=== PATIENT | female | born 1945 | race Caucasian/White ===

== ENCOUNTER 2020-01-04 00:37 | Outpatient (CLI) | payer MEDICARE, SELFPAY ==
[2020-01-04 17:53] LABS: SARS-CoV-2 RNA PCR Negative
== END 2020-01-04 00:38 | disposition home or self-care (01) ==
LOC: ANHCOVIDDT 00:37
PROVIDERS: PCP Family Medicine; Visit Provider Internal Medicine Gastroenterology
DX: Z20.828 Contact with and (suspected) exposure to other viral communicable diseases (principal); Z01.812 Encounter for preprocedural laboratory examination
CPT/HCPCS: 87635; C9803; U0003

== ENCOUNTER 2020-01-07 02:27 | Day surgery (SDC) | payer MEDICARE, SELFPAY ==
[2020-01-01 12:20] VITALS: BMI 36.1
--- NOTE | 2020-01-07 07:05 | P.PNAN_ITS ---
Anes - Initial Pre Proc Eval Procedure: Operation Date: 01/07/20 08:00 Proposed Procedures p Esophagogastroduodenoscopy - Dev Velez MD Date/Time: 01/07/20 07:05 Surgeon: Dev Velez MD Pre Op Diagnosis: iron deficiency anemia Patient Data Age: 74 Gender: F Height: 5 ft 4 in Weight: 95.5 kg Allergies Allergy/AdvReac Type Severity Reaction Status Date / Time lisinopril Allergy troat and Verified 01/07/20 07:00 tounge swelling Home Medications Medication Instructions Recorded Confirmed Type allopurinol 100 mg tablet 100 mg PO DAILY 12/03/19 01/01/20 History cholecalciferol (vitamin D3) 1,250 1,250 mcg PO MONTHLY 12/03/19 01/01/20 Histo ry mcg (50,000 unit) capsule clotrimazole 1 % topical cream 1 applic TOPICAL Q12H 12/03/19 12/06/19 History ferrous sulfate 325 mg (65 mg 325 mg PO DAILY 12/03/19 01/01/20 History iron) tablet furosemide 40 mg tablet 40 mg PO QAM 12/03/19 01/01/20 History glipizide 5 mg tablet 5 mg PO DAILY 12/03/19 01/01/20 History glucosamine HCl 750 mg tablet 750 mg PO BID 12/03/19 01/01/20 History levothyroxine 75 mcg capsule 75 mcg PO DAILY 12/03/19 01/01/20 History metformin 500 mg tablet 500 mg PO DAILY 12/03/19 01/01/20 History metoprolol succinate 25 mg 25 mg PO DAILY 12/03/19 01/01/20 History tablet,extended release 24 hr multivitamin 1 tablet PO DAILY 12/03/19 01/01/20 History pantoprazole 40 mg tablet,delayed 40 mg PO QAM 12/03/19 01/01/20 History release pravastatin 40 mg tablet 40 mg PO DAILY 12/03/19 01/01/20 History Patient hx anesthesia problems: none Family hx anesthesia problems: none PMFSH Past Medical History Medical History Anemia Asthma CKD (chronic kidney disease) Diabetes Gastroesophageal mucosal tear GI bleed x3 Mar 05, Jun 05, December 04 Gout History of blood clots History of blood transfusion 9 units HTN (hypertension) Melena Renal failure Thyroid disease Surgical History Surgical History H/O gastric bypass H/O: hysterectomy History of esophagogastroduodenoscopy (EGD) History of repair of hiatal hernia Family History Family History Father Heart attack Mother Diabetes mellitus Social History Social History Smoking status: Never smoker Alcohol intake: current Substance use: never Additional occupation/education comments: disability Gender identity (if verbalized by the patient): Female Anes - Eval Final PreProcedure Day of Procedure 01/07/20 07:05 Patient weight: obese Heart: regular rate and rhythm Lungs: clear to auscultation Airway: Mallampati scale class II Neurological: alert and oriented Last oral intake: >/= 8 hours ASA classification: II Emergent: no Anesthetic plan: proceed Anesthesia type and monitoring: general GIVS and standard monitoring Informed Consent: The patient's anesthetic plan and its attendant risks and benefits were discussed with the patient/family/POA. Questions were solicited and answers provided to the satisfaction of the patient/family/POA.
[2020-01-07 07:24] LABS: Glucose Point of Care 190 (65-105)
[2020-01-07 07:26] VITALS: BP 150/89; PULSE 86; RESP 20; TEMP 36.8; O2SAT 96
--- NOTE | 2020-01-07 07:51 | WPDGICN ---
Assessment and Plan Assessment and plan (1) SLIME (iron deficiency anemia): Code(s): D50.9 - Iron deficiency anemia, unspecified Status: Acute Assessment and Plan: Patient has had significant GI bleeding recently. Has required iron infusions. Follow-up EGD is advised at this time. Elective colonoscopy at a later date most recent colonoscopy was 2018. Continue monitor hemoglobin to ensure response to recent iron infusions. CBC should be performed at a regular basis for the next interval. (2) History of gastric bypass: Code(s): Z98.84 - Bariatric surgery status Status: Acute Assessment and Plan: Patient has a history of gastric bypass which may contribute to her iron deficiency. She is reported to have surgical gabino in the stomach which will be evaluated by EGD to determine whether the should be monitored or additional therapy warranted. (3) Upper GI bleed: Code(s): K92.2 - Gastrointestinal hemorrhage, unspecified Status: Acute (4) History of colon polyps: Code(s): Z86.010 - Personal history of colonic polyps Status: Acute Assessment and Plan: Patient has a history of colon polyps most recent colonoscopy 2018. Elective colonoscopy is advised particularly because of for ongoing iron deficiency. This should be done at least by 2020. GI Consult Note Consult date/time: 01/07/20 07:51 HPI: Lynn Wylie is a 74 year old female Seen in evaluation at the request of Abhilash Chu. patient has a history of recurrent GI bleeding. This initially began in February of 2019. She reports having 3-4 endoscopies elsewhere. At that time retained clips were identified in the stomach. Presumably from prior surgery. Patient has a distant history of gastric bypass. In her 40s. She states she has done well over recent several months. In the recent past has had for at least 5 iron infusions. There has been discussion over possible surgical resection of these retained gastric gabino from previous bypass. Patient also gives diff than state history of colon polyps identified by colonoscopy in 2018. Her family history is noncontributory. Review of Systems Review of Systems: All systems reviewed & are unremarkable except as noted in HPI and below PMFSH Past Medical History Medical History Anemia Asthma CKD (chronic kidney disease) Diabetes Gastroesophageal mucosal tear GI bleed x3 Mar 05, Jun 05, December 04 Gout History of blood clots History of blood transfusion 9 units HTN (hypertension) Melena Renal failure Thyroid disease Surgical History Surgical History H/O gastric bypass H/O: hysterectomy History of esophagogastroduodenoscopy (EGD) History of repair of hiatal hernia Family History Family History Father Heart attack Mother Diabetes mellitus Social History Social History Smoking status: Never smoker Alcohol intake: current Substance use: never Additional occupation/education comments: disability Gender identity (if verbalized by the patient): Female Meds Home Medications and Allergies Home Medications Medication Instructions Recorded Confirmed Type allopurinol 100 mg tablet 100 mg PO DAILY 12/03/19 01/01/20 History cholecalciferol (vitamin D3) 1,250 1,250 mcg PO MONTHLY 12/03/19 01/01/20 History mcg (50,000 unit) capsule clotrimazole 1 % topical cream 1 applic TOPICAL Q12H 12/03/19 12/06/19 History ferrous sulfate 325 mg (65 mg 325 mg PO DAILY 12/03/19 01/01/20 History iron) tablet furosemide 40 mg tablet 40 mg PO QAM 12/03/19 01/01/20 History glipizide 5 mg tablet 5 mg PO DAILY 12/03/19 01/01/20 History glucosamine HCl 750 mg tablet 750 mg PO BID 12/03/19 01/01/20 History levothyro
[2020-01-07] MEDS: LACTATED RINGERS 1,000 ML 150 ML IV CONT (08:20)
[2020-01-07 08:25] VITALS: BP 108/61; PULSE 80; RESP 28; O2SAT 96
[2020-01-07 08:35] VITALS: BP 138/90; PULSE 78; RESP 23; O2SAT 98
[2020-01-07 08:45] VITALS: BP 153/100; PULSE 78; RESP 23; O2SAT 100
== END 2020-01-07 09:05 | disposition home or self-care (01) ==
PROVIDERS: PCP Family Medicine; Visit Provider Internal Medicine Gastroenterology
PROC: 0DJ08ZZ Inspection of Upper Intestinal Tract, Via Natural or Artificial Opening Endoscopic (ICD-10-PCS; CPT 43235; principal; 2020-01-07 08:00)
DX: D50.9 Iron deficiency anemia, unspecified (principal); K29.51 Unspecified chronic gastritis with bleeding; K44.9 Diaphragmatic hernia without obstruction or gangrene; K25.9 Gastric ulcer, unspecified as acute or chronic, without hemorrhage or perforation; T18.2XXA Foreign body in stomach, initial encounter; X58.XXXA Exposure to other specified factors, initial encounter; Y93.9 Activity, unspecified; Y92.9 Unspecified place or not applicable; Y99.9 Unspecified external cause status; K21.9 Gastro-esophageal reflux disease without esophagitis; I12.9 Hypertensive chronic kidney disease with stage 1 through stage 4 chronic kidney disease, or unspecified chronic kidney disease; E11.22 Type 2 diabetes mellitus with diabetic chronic kidney disease; Z79.84 Long term (current) use of oral hypoglycemic drugs; N18.9 Chronic kidney disease, unspecified; E03.9 Hypothyroidism, unspecified; M10.9 Gout, unspecified; E66.9 Obesity, unspecified; Z68.35 Body mass index [BMI] 35.0-35.9, adult; Z98.84 Bariatric surgery status; Z86.718 Personal history of other venous thrombosis and embolism
CPT/HCPCS: 43235; J2704; J7120

== ENCOUNTER 2020-05-21 10:36 | Outpatient (CLI) | payer MEDICARE, SELFPAY ==
[2020-05-21 12:37] LABS: IFOB Positive Control Positive; Immunochemical Fecal Occult Bl Positive (N)
== END 2020-05-21 10:37 | disposition home or self-care (01) ==
LOC: ANHLAB 10:39
PROVIDERS: PCP Family Medicine; Visit Provider Internal Medicine Gastroenterology
DX: D50.9 Iron deficiency anemia, unspecified (principal)
CPT/HCPCS: 82274

== ENCOUNTER 2020-07-18 09:45 | Emergency (ER) | payer MEDICARE, SELFPAY ==
[2020-07-18] VITALS (17 sets, daily range): BP systolic 93–163; BP diastolic 52–109; PULSE 107–146; RESP 16–23; TEMP 36.5–36.9; O2SAT 96–100
--- NOTE | ~2020-07-18 | CT_ITS ---
EXAMINATION: CT abdomen pelvis wo con DATE: 07/18/2020 11:12 INDICATION: Abdominal pain. Rectal bleeding. TECHNIQUE: Computed tomography (CT) of the abdomen and pelvis was performed without intravenous contr ast. Automated exposure control and iterative reconstruction technique were employed. The dose-length product was 1047.34 mGy-cm. COMPARISON: None FINDINGS: Lung bases are clear. Heart size is normal. Atherosclerotic coronary artery calcifications. No perica rdial or pleural effusion. Cirrhotic liver with nodular surface contour and shrunken right hepatic lo be with hypertrophy lateral segment of the left hepatic lobe. Numerous tiny calcified gallstones fill ing the gallbladder which measures up to 4.1 cm diameter which remains within normal limits with no e vident wall thickening or pericholecystic inflammatory change to suggest acute cholecystitis. No intr a or extra hepatic biliary ductal dilation. There is mild stranding about the head of the pancreas an d could not exclude acute interstitial pancreatitis. Splenomegaly measuring 15.0 cm length suggestive of portal venous hypertension. The bilateral adrenal glands and kidneys are normal. Postoperative ch anges along the anterior abdominal wall suggesting prior ventral hernia mesh repair. A short segment of the nonobstructed transverse colon extends into a moderate-sized ventral hernia along the inferior margin of the suspected mesh repair with orifice measuring 3.0 x 3.8 cm in diameter. Surgical clip a t the tip of the cecum with nonvisualized appendix suggesting prior appendectomy. There is focal wall thickening at the tip the cecum proximal to the ileocecal valve. No dilated bowel to suggest obstruc tion. Mild diffuse bladder wall thickening likely related to incomplete distention. The uterus is not identified and has likely been surgically resected. Minimal ascites in the pelvis. No pathologically enlarged abdominal or pelvic lymphadenopathy.. There is calcified atherosclerosis of the aorta and m any of the other arteries. Moderate to severe thoracolumbar spondylosis. IMPRESSION: 1. 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 2. Nonspecific mild stranding at the head of the pancreas which could be related to duodenitis, pepti c ulcer disease or acute interstitial pancreatitis. Correlate with amylase and lipase levels. 3. Cholelithiasis. 4. Lower abdominal ventral hernia containing short segment of nonobstructed transverse colon. 5. Mild wall thickening at the cecum which could be related to a focal colitis either infectious or i nflammatory in etiology or potentially malignancy. Could consider colonoscopy for further evaluation although this region may not be accessible without reduction of the herniated transverse colon. The h erniation would also likely hinder assessment by double contrast enema. 6. Diffuse mild bladder wall thickening likely related to incomplete distention although differential would include cystitis either acute or chronic. Correlate with urinalysis. Reviewed, dictated and finalized at location A. ORK DESKTOP SUPPORT SPECIALIST IMPRESSION: 1. 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 2. Nonspecific mild stranding at the head of the pancreas which could be relate d to duodenitis, peptic ulcer disease or acute interstitial pancreatitis. Corre late with amylase and lipase levels. 3. Cholelithiasis. 4. Lower abdominal ventral hernia containing short segment of nonobstructed tra nsverse colon. 5. Mild wall thickening at the cecum which could be related to a focal colitis either infectious or inflammatory in etiology or potentially malignancy. Could consider colonoscopy for further evaluation although this region may not be acc essible without reduction of the herniated t
[2020-07-18 10:10] LABS: Basophils Percent Auto 0.2 % (0.2-1.2); Eosinophils Percent Auto 0.3 % (0-4.4); Hematocrit 24.7 % (37.0-47.0); Hemoglobin 7.9 g/dL (12.0-15.0); Immature Granulocyte Absolute 0.11 K/mm3 (0.00-0.031); Immature Granulocyte Percent A 0.9 % (0-0.5); Lymphocytes Absolute Auto 1.45 K/mm3 (0.9-3.2); Lymphocytes Percent Auto 11.6 % (18.3-44.2); Mean Corpuscular Hemoglobin 28.4 pg (26-34); Mean Corpuscular Volume 88.8 fl (80-100); Mean Platelet Volume 9.6 fl (7.4-10.4); Monocytes Absolute Auto 0.7 K/mm3 (0.1-0.6); Monocytes Percent Auto 5.8 % (2.6-8.5); Neutrophils Absolute Auto 10.2 K/mm3 (1.3-6.7); Neutrophils Percent Auto 81.2 % (45.5-73.1); Platelet Count Result 219 k/mm3 (150-375); Red Blood Count 2.78 M/mm3 (4.2-5.4); Red Cell Distribution Width 16.6 % (11.5-14.5); White Blood Count 12.5 K/mm3 (4.5-10.0)
[2020-07-18 10:23] LABS: INR 1.2; Partial Thromboplastin Time 25.5 SECONDS (22.3-36.8); Prothrombin Time 15.3 Seconds (11.1-14.7)
[2020-07-18 10:34] LABS: Alanine Aminotransferase 30 U/L (4-35); Albumin Level 3.2 g/dL (3.5-5.1); Alkaline Phosphatase 130 U/L (38-126); Anion Gap 9 mmol/L (8-16); Aspartate Amino Transferase 44 U/L (14-36); Bilirubin,Total 0.4 mg/dL (0.2-1.3); Blood Urea Nitrogen 40 mg/dL (7-17); Calcium 8.6 mg/dL (8.4-10.2); Carbon Dioxide 26 mmol/L (22-30); Chloride 102 mmol/L (98-107); Estimated CRCL calculation 34 ml/min; Estimated Glomerular Filt Rate 37; Glucose 273 mg/dL (65-105); Potassium 4.2 mmol/L (3.4-5.0); Sodium 137 mmol/L (137-145)
[2020-07-18] MEDS: SODIUM CHLORIDE 0.9% IV 1,000 ML 999 ML IV CONT (10:51)
[2020-07-18] MEDS: PANTOPRAZOLE SODIUM IV 40 MG VIAL IV PUSH (10:51)
[2020-07-18 12:18] LABS: Lactic Acid Reflex 3.5 mmol/L (0.7-2.1)
--- NOTE | 2020-07-18 12:27 | ECG_ITS ---
Measurements Intervals [place] Rate: 128 P: -68 [place]: 214 QRS: 29 QRSD: 88 T: 86 QT: 319 QTc: 467 Interpretive Statements SINUS OR ECTOPIC ATRIAL TACHYCARDIA BORDERLINE ST-T WAVE ABNORMALITY- ANTEROLAT/HIGH LAT LEADS BASELINE WANDER- I, II, III, AVR, AVL, AVF, V1-V6 ABNORMAL ECG Electronically Signed On 07-18-2020 15:18:26 MAILING MACHINE HELPER by Frank Freeman D.O.
--- NOTE | 2020-07-18 12:31 | WPDGIPROGNO ---
Progress Note: A&P Additional Plan [facility] 8 Acute blood loss anemia with concern for active gi bleed with h/o gastric bypass - Needs tagged RBC scan - If positive->angio - Will need transfer - Case discussed with ER staff #[id number] VIDYA Garcia [phone] Subjective Date/time seen: 07/18/20 12:31 Objective Data Vital Signs Vital Signs: Vital Signs - 24 hr 07/18/20 09:51 07/18/20 10:00 07/18/20 10:11 Temperature 36.5 C Pulse Rate 126 H 132 H 136 H Respiratory Rate 18 20 Blood Pressure 151/52 H 161/104 H 138/84 Pulse Oximetry 100 99 07/18/20 10:12 07/18/20 10:51 07/18/20 11:49 Temperature Pulse Rate 146 H 127 H 117 H Respiratory Rate 21 H 20 Blood Pressure 93/68 L 128/75 155/95 H Pulse Oximetry 99 98 Intake/Output Intake/Output: Intake & Output 07/15/20 07/16/20 07/17/20 07/18/20 23:59 23:59 23:59 23:59 Intake Total 1000 Balance 1000 Meds/Results Medications: Active Medications Generic Name Dose Route Start Last Admin Trade Name Freq PRN Reason Stop Dose Admin Sodium Chloride 250 mls @ 30 mls/hr 07/18/20 10:31 Normal Saline Iv IV CONT 07/18/20 18:50 .Q8H20M STA Radiology Results: ITS Impressions Abdomen/Pelvis CT 07/18/20 11:19 IMPRESSION: 1. 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 2. Nonspecific mild stranding at the head of the pancreas which could be related to duodenitis, peptic ulcer disease or acute interstitial pancreatitis. Correlate with amylase and lipase levels. 3. Cholelithiasis. 4. Lower abdominal ventral hernia containing short segment of nonobstructed transverse colon. 5. Mild wall thickening at the cecum which could be related to a focal colitis either infectious or inflammatory in etiology or potentially malignancy. Could consider colonoscopy for further evaluation although this region may not be accessible without reduction of the herniated transverse colon. The herniation would also likely hinder assessment by double contrast enema. 6. Diffuse mild bladder wall thickening likely related to incomplete distention although differential would include cystitis either acute or chronic. Correlate with urinalysis. Labs Labs: Laboratory Results - last 24 hr 07/18/20 07/18/20 07/18/20 10:04 10:04 10:04 WBC 12.5 H RBC 2.78 L Hgb 7.9 L Hct 24.7 L MCV 88.8 MCH 28.4 MCHC 32.0 RDW 16.6 H Plt Count 219 MPV 9.6 Immature Gran % (Auto) 0.9 H Neut % (Auto) 81.2 H Lymph % (Auto) 11.6 L [place] % (Auto) 5.8 Eos % (Auto) 0.3 Baso % (Auto) 0.2 Lymph # (Auto) 1.45 [place] # (Auto) 0.7 H Eos # (Auto) 0.0 Baso # (Auto) 0.0 Abs Immat Gran (auto) 0.11 H Absolute Neuts (auto) 10.2 H Absolute Nucleated RBC 0.0 Nucleated RBC % 0.0 PT 15.3 H INR 1.2 APTT 25.5 Sodium 137 Potassium 4.2 Chloride 102 Carbon Dioxide 26 Anion Gap 9 BUN 40 H Creatinine 1.40 H Estim Creat Clear Calc 34 Estimated GFR 37 L Glucose 273 H Lactic Acid Calcium 8.6 Total Bilirubin 0.4 AST 44 H ALT 30 Alkaline Phosphatase 130 H Total Protein 6.0 L Albumin 3.2 L Blood Type Antibody Screen Crossmatch 07/18/20 07/18/20 10:04 11:53 WBC RBC Hgb Hct MCV MCH MCHC RDW Plt Count MPV Immature Gran % (Auto) Neut % (Auto) Lymph % (Auto) [place] % (Auto) Eos % (Auto) Baso % (Auto) Lymph # (Auto) [place] # (Auto) Eos # (Auto) Baso # (Auto) Abs Immat Gran (auto) Absolute Neuts (auto) Absolute Nucleated RBC Nucleated RBC % PT INR APTT Sodium Potassium Chloride Carbon Dioxide Anion Gap BUN Creatinine Estim Creat Clear Calc Estimated GFR Glucose Lactic Acid 3.5 H Calcium Total Bilirubin AST ALT Alkaline Phosphatase Total Protein Albumin Blood Type B Positive Antibody Screen Positive C
--- NOTE | 2020-07-18 13:10 | ED.GENADULT ---
HPI - General Adult General Chief complaint: GI Bleed <Luisito Toledo PA-C - Last Filed: 07/18/20 17:40> Stated complaint: bloody stool <ADENIKE Amezcua Last Filed: 07/18/20 17:40> Time Seen by Provider: 07/18/20 10:10 <ADENIKE Amezcua Last Filed: 07/18/20 17:40> Source: patient, family and old records reviewed <ADENIKE Amezcua Last Filed: 07/18/20 17:40> Mode of arrival: ambulatory <ADENIKE Amezcua Last Filed: 07/18/20 17:40> Limitations: no limitations <ADENIKE Amezcua Last Filed: 07/18/20 17:40> History of Present Illness HPI narrative: Patient is 74-year-old female who presents with GI bleeding patient notes at midnight she began to have some cramping of the abdomen followed by dark and red blood in the toilet has had multiple episodes lasting into the morning presents to emergency department denying any current abdominal pain but noting she still has GI upset patient has had since February of last year issues with GI bleeding has had multiple upper endoscopic E's in [place] and then was being followed by GI at [facility] who had done an endoscopy on her but did not find a cause for her bleeding patient has been unable to have a colonoscopy due anatomy complications and was going to be referred to a tertiary facility by her lead clinical research coordinator if the bleeding continues. Patient today on arrival does not appear distressed or uncomfortable. Patient denies any vomiting but does note nausea. <ADENIKE Amezcua Last Filed: 07/18/20 17:40> Related Data Home medications: Home Medications Medication Instructions Recorded Confirmed allopurinol 100 mg tablet 100 mg PO DAILY 12/03/19 01/01/20 cholecalciferol (vitamin D3) 1,250 1,250 mcg PO MONTHLY 12/03/19 01/01/20 mcg (50,000 unit) capsule clotrimazole 1 % topical cream 1 applic TOPICAL Q12H 12/03/19 12/06/19 ferrous sulfate 325 mg (65 mg 325 mg PO DAILY 12/03/19 01/01/20 iron) tablet furosemide 40 mg tablet 40 mg PO QAM 12/03/19 01/01/20 glipizide 5 mg tablet 5 mg PO DAILY 12/03/19 01/01/20 glucosamine HCl 750 mg tablet 750 mg PO BID 12/03/19 01/01/20 levothyroxine 75 mcg capsule 75 mcg PO DAILY 12/03/19 01/01/20 metformin 500 mg tablet 500 mg PO DAILY 12/03/19 01/01/20 metoprolol succinate 25 mg 25 mg PO DAILY 12/03/19 01/01/20 tablet,extended release 24 hr multivitamin 1 tablet PO DAILY 12/03/19 01/01/20 pantoprazole 40 mg tablet,delayed 40 mg PO QAM 12/03/19 01/01/20 release pravastatin 40 mg tablet 40 mg PO DAILY 12/03/19 01/01/20 <Luisito Toledo PA-C - Last Filed: 07/18/20 17:40> Allergies/adverse reactions: Allergies Allergy/AdvReac Type Severity Reaction Status Date / Time lisinopril Allergy troat and Verified 07/18/20 09:55 tounge swelling <Luisito Toledo PA-C - Last Filed: 07/18/20 17:40> Review of Systems Review of Systems: All systems reviewed & are unremarkable except as noted in HPI and below <Luisito Toledo PA-C - Last Filed: 07/18/20 17:40> [facility] Past Medical History Medical History: Medical History (Updated 07/18/20 @ 13:16 by Luisito Toledo PA-C) Anemia Asthma CKD (chronic kidney disease) Diabetes Gastroesophageal mucosal tear GI bleed x3 Mar 05, Jun 05, December 04 Gout History of blood clots History of blood transfusion 9 units HTN (hypertension) Melena Renal failure Thyroid disease <Luisito Toledo PA-C - Last Filed: 07/18/20 17:40> Surgical History Surgical History: Surgical History H/O gastric bypass H/O: hysterectomy History of esophagogastroduodenoscopy (EGD) History of repair of hiatal hernia <Luisito Toledo PA-C - Last Filed: 07/18/20 17:40> Family History Family History: Family History Father Heart attack Mother Diabetes ciara
[2020-07-18] MEDS: SODIUM CHLORIDE 0.9% IV 250 ML 30 ML IV CONT (14:55)
[2020-07-18] MEDS: TUBING, BLOOD PLUM PUMP TUBING 1 EACH XX ×2 (14:56→16:56)
[2020-07-18 15:02] LABS: Reflex Lactic Acid Yes or No Add Lactic
--- NOTE | 2020-07-18 15:02 | PC.NURSE ---
Emergent blood released from blood blank at this time. Blood consent obtained and blood products started per Geovanny SWIFT and Dr. Gallegos.
[2020-07-18 15:10] LABS: Lipase 94 U/L (23-300)
--- NOTE | 2020-07-18 15:17 | CONS_ITS ---
DATE OF CONSULTATION: 07/18/2020 HISTORY OF PRESENT ILLNESS: This is a 74-year-old white female with history of asthma, anemia, diabetes, hypertension, chronic kidney disease, thyroid disorder, gout, hiatal hernia repair and gastric bypass in 1974 at [facility], who now presents for evaluation of GI bleed. I am now asked to provide GI evaluation at the request of the ER service. The patient's primary care provider is Dr. Abhilash Chu. Primary surveyor geophysical prospecting is Dr. Dev Velez. The patient's daughter, Yolanda, is present for the entire visit. The patient was seen in ER room 8. The patient was in her usual state of health and feeling well until about midnight last night when she began having severe crampy abdominal pain diffusely throughout the abdomen. It is now better this morning. It was associated with nausea but no vomiting. She has had dyspnea on exertion and had lightheadedness. From about midnight to 7 a.m., her stools were very dark, but at 8 a.m. this morning, she had bright red blood per rectum. She takes iron twice daily, which does not make her stool dark so the dark stool last night was new. She was not taking Pepto-Bismol either. The patient states her bleeding issues began in February 2019 when she began having recurrent GI bleeds. She had 3 to 4 endoscopies elsewhere. She saw Dr. Dev Velez on January 06 and he noted that she has had significant GI bleeds requiring frequent iron infusions. She had a history of colon polyps seen on colonoscopy done in 2018. Upper endoscopy done January 07, [address] Velez showed a moderate-size hiatal hernia, antral erosion, and gastritis. Recommendation was made for Protonix twice daily and Carafate. He also notes that previous gastric surgery is open and probably no longer functions as a gastric bypass. The patient denies significant heartburn, loss of appetite or weight, constipation, diarrhea, fever, jaundice, scleral icterus, dark urine, light stools, itching, hot or cold intolerance, chest pain, hematuria, dysuria, new cough or visual changes, easy bruising, tingling of the skin, bone pain, or tremors. No endocarditis risk factors. ALLERGIES: LISINOPRIL. MEDICATIONS: See list but includes iron twice daily. She specifically denies use of aspirin, nonsteroidals, or anticoagulants. SOCIAL HISTORY: Nonsmoker. Occasional alcohol. FAMILY HISTORY: Negative for GI malignancy. Endoscopy as above. PHYSICAL EXAM: GENERAL: Obese female, lying in bed, no apparent distress, but she is noted to be significantly orthostatic and tachycardic with a heart rate of 125. SKIN: She has no lower extremity edema, jaundice, spider angioma, or palmar erythema. HEENT: Skull is normocephalic, atraumatic. Pupils nonicteric. Oropharynx clear. NECK: Supple without thyromegaly. LUNGS: Clear to auscultation. HEART: Rate and rhythm regular. S1, S2 normal. ABDOMEN: Normoactive bowel sounds. Soft, nontender, nonrigid, nondistended without hepatosplenomegaly or masses. RECTAL: Deferred. NEUROLOGIC: Conscious and alert x3. LABORATORY DATA: Today hemoglobin 8, hematocrit 25, white count of 13, platelets 219, MCV 89. INR 1.2, PTT 26, creatinine 1.4. Stool heme-positive. T bilirubin 0.4, alkaline phosphatase 130, AST 44, ALT is 30. COVID-19 is negative. IMAGING: CT scan of the abdomen and pelvis shows cirrhosis with splenomegaly. Stranding at the head of the pancreas. Gallstones and wall thickening of the cecum. ASSESSMENT AND PLAN: 1. Patient with abdominal pain, nausea, acute blood loss anemia with melena and hematochezia, heme-positive stool, as well as significant orthostasis and tachycardia. Her bright red blood per rectum with orthostasis and tachycardia suggests she may be having active gas
[2020-07-18 15:41] LABS: Lactic Acid 2.5 mmol/L (0.7-2.1)
--- NOTE | 2020-07-18 17:52 | PC.NURSE ---
[facility] accepted transfer to [facility] ETA 2029 Trip# [id number]
--- NOTE | 2020-07-18 18:50 | PC.NURSE ---
Patient transferred to [facility] at this time via [facility].
--- NOTE | 2020-07-18 19:00 | PC.NURSE ---
Addendum entered by Allie Cotton RN 07/18/20 19:30: Temp 98.5, pulse 107, RR 21, BP 111/52 and 97% on room air. Original Note: Patient transferred via [facility] with approx 247 ml of blood to be transfused still.
== END 2020-07-18 19:00 | disposition short-term general hospital (02) ==
PROVIDERS: Emergency Medicine Emergency Medical Services; Emergency Provider Emergency Medicine; PCP Family Medicine
DX: K92.2 Gastrointestinal hemorrhage, unspecified (principal); D62 Acute posthemorrhagic anemia; J45.909 Unspecified asthma, uncomplicated; E11.22 Type 2 diabetes mellitus with diabetic chronic kidney disease; I12.9 Hypertensive chronic kidney disease with stage 1 through stage 4 chronic kidney disease, or unspecified chronic kidney disease; N18.9 Chronic kidney disease, unspecified; Z79.84 Long term (current) use of oral hypoglycemic drugs; M10.9 Gout, unspecified; E07.9 Disorder of thyroid, unspecified; Z98.84 Bariatric surgery status; I47.1 Supraventricular tachycardia; R94.31 Abnormal electrocardiogram [ECG] [EKG]; K74.60 Unspecified cirrhosis of liver; R16.1 Splenomegaly, not elsewhere classified; K80.20 Calculus of gallbladder without cholecystitis without obstruction; K43.9 Ventral hernia without obstruction or gangrene; R93.3 Abnormal findings on diagnostic imaging of other parts of digestive tract; R93.41 Abnormal radiologic findings on diagnostic imaging of renal pelvis, ureter, or bladder
CPT/HCPCS: 36415; 36430; 74176; 80053; 83605; 83690; 85025; 85610; 85730; 86850; 86870; 86880; 86900; 86901; 86902; 86905; 86922; 86971; 93005; 96361; 96365; 96366; 96375; 99285; C9113; J2354; J7030; J7050; P9016

== ENCOUNTER 2021-11-15 05:15 | Emergency (ER) | payer MEDICARE, SELFPAY ==
--- NOTE | ~2021-11-15 | XR_ITS ---
XR chest 2V DATE: 11/15/2021 06:10 INDICATION: Shortness of breath TECHNIQUE: AP and lateral views COMPARISON: None FINDINGS: There is bilateral hyperinflation with relative flattening of the diaphragm and increased r etrosternal airspace, suggesting COPD. No pulmonary infiltrate or consolidation, pleural effusion or pulmonary vascular congestion or pneumo thorax is detected. Normal heart size. Aortic arch calcification. There is degenerative spurring of the thoracic spine. Diffuse osteopenia. IMPRESSION: Bilateral hyperinflation suggesting COPD No active pulmonary disease Aortic atherosclerosis Reviewed, dictated and finalized at location A.
[2021-11-15 05:21] VITALS: BP 149/72; PULSE 92; RESP 18; TEMP 36.3; O2SAT 100
[2021-11-15 05:34] VITALS: O2SAT 99
--- NOTE | 2021-11-15 05:35 | ECG_ITS ---
Measurements Intervals [place] Rate: 94 P: 39 DE: 156 QRS: 17 QRSD: 83 T: 73 QT: 359 QTc: 449 Interpretive Statements SINUS RHYTHM VENTRICULAR PREMATURE COMPLEX CANNOT RULE OUT SEPTAL INFARCT, AGE INDETERMINATE BASELINE ARTIFACT- I, II, AVR, AVL, V4 ABNORMAL ECG Electronically Signed On 11-15-2021 6:46:02 CDT by Frank Freeman D.O.
[2021-11-15 06:27] LABS: Basophils Percent Auto 0.4 % (0.2-1.2); Eosinophils Absolute Auto 0.2 K/mm3 (0-0.3); Eosinophils Percent Auto 3.5 % (0-4.4); Hematocrit 33.8 % (37.0-47.0); Hemoglobin 10.8 g/dL (12.0-15.0); Immature Granulocyte Absolute 0.02 K/mm3 (0.00-0.031); Immature Granulocyte Percent A 0.4 % (0-0.5); Lymphocytes Absolute Auto 0.84 K/mm3 (0.9-3.2); Lymphocytes Percent Auto 17.2 % (18.3-44.2); Mean Corpuscular Volume 93.9 fl (80-100); Mean Platelet Volume 10.8 fl (7.4-10.4); Monocytes Absolute Auto 0.4 K/mm3 (0.1-0.6); Monocytes Percent Auto 7.2 % (2.6-8.5); Neutrophils Absolute Auto 3.5 K/mm3 (1.3-6.7); Neutrophils Percent Auto 71.3 % (45.5-73.1); Platelet Count Result 135 k/mm3 (150-375); White Blood Count 4.9 K/mm3 (4.5-10.0)
[2021-11-15 06:32] LABS: INR 1.1; Prothrombin Time 13.9 Seconds (11.1-14.7)
[2021-11-15 06:33] LABS: Alanine Aminotransferase 35 U/L (4-35); Albumin Level 3.9 g/dL (3.5-5.1); Alkaline Phosphatase 161 U/L (38-126); Anion Gap 10 mmol/L (8-16); Aspartate Amino Transferase 54 U/L (14-36); Bilirubin,Total 0.6 mg/dL (0.2-1.3); Blood Urea Nitrogen 26 mg/dL (7-17); Calcium 8.7 mg/dL (8.4-10.2); Carbon Dioxide 27 mmol/L (22-30); Chloride 103 mmol/L (98-107); Estimated CRCL calculation 39 ml/min; Estimated Glomerular Filt Rate 44; Glucose 205 mg/dL (65-110); Lipase 118 U/L (23-300); Partial Thromboplastin Time 31.1 SECONDS (22.3-36.8); Potassium 3.8 mmol/L (3.4-5.0); Sodium 140 mmol/L (137-145)
[2021-11-15 06:41] VITALS: BP 159/97; PULSE 96; RESP 21; O2SAT 100
[2021-11-15 06:44] LABS: Troponin I < 0.012 ng/mL (0.000-0.034)
[2021-11-15 06:57] LABS: Add Urine Microscopic? YES; Appearance Urine Cloudy (Clear); Bacteria Urine 2+ /hpf; Bilirubin Urine Negative (Negative); Color Urine Yellow (Yellow); Glucose Urine UA Negative (Negative); Ketones Urine Negative (Negative); Leukocyte Esterase Ur Trace LEU/UL (Negative); Mucus Urine Rare /lpf; Nitrate Urine Negative (Negative); Protein Urine Negative (Negative); RBC Urine 0-2 /hpf (0-2); Specific Grav Ur 1.015 (1.001-1.035); Squamous Epithelial Cell Urine Few /hpf (Few); Urobilinogen Urine Negative mg/dL (<2.0); WBC Clumps Urine Present /HPF; WBC Urine 21-30 /hpf
[2021-11-15 07:01] LABS: Blood Urine Negative (Negative)
[2021-11-15] MEDS: MAG HYDROX/AL HYDROX/SIMETH 30 ML UDC PO (07:10)
[2021-11-15] MEDS: LIDOCAINE HCL 2% VISC SOLN 15 ML UDC 20 ML PO (07:10)
[2021-11-15 07:18] VITALS: BP 158/85; PULSE 93; RESP 21; O2SAT 98
--- NOTE | 2021-11-15 08:07 | ED.SOB ---
HPI - SOB/Dyspnea General Chief Complaint: Shortness of Breath/Dyspnea Stated Complaint: difficulty swallowing/SOB Time Seen by Provider: 11/15/21 05:36 Source: patient History of Present Illness HPI Narrative: Patient presents with esophageal pain nausea and dizziness and not feeling well. Patient ports she has had symptoms for the past few days. Reports her symptoms started after taking her vitamin C pill which felt like it was lodged in her esophagus. Since then she gets these intermittent squeezing pains in her chest. Reports sometimes she feels short of breath when has these episodes. Patient also notes nausea and lightheadedness over the past few days as well as increased urinary urgency over the past few days. She denies fevers or back pain denies any diarrhea or known sick contacts Related Data Home Medications Medication Instructions Recorded Confirmed allopurinol 100 mg tablet 100 mg PO DAILY 12/03/19 01/01/20 cholecalciferol (vitamin D3) 1,250 1,250 mcg PO MONTHLY 12/03/19 01/01/20 mcg (50,000 unit) capsule clotrimazole 1 % topical cream 1 applic TOPICAL Q12H 12/03/19 12/06/19 ferrous sulfate 325 mg (65 mg 325 mg PO DAILY 12/03/19 01/01/20 iron) tablet furosemide 40 mg tablet 40 mg PO QAM 12/03/19 01/01/20 glipizide 5 mg tablet 5 mg PO DAILY 12/03/19 01/01/20 glucosamine HCl 750 mg tablet 750 mg PO BID 12/03/19 01/01/20 levothyroxine 75 mcg capsule 75 mcg PO DAILY 12/03/19 01/01/20 metformin 500 mg tablet 500 mg PO DAILY 12/03/19 01/01/20 metoprolol succinate 25 mg 25 mg PO DAILY 12/03/19 01/01/20 tablet,extended release 24 hr multivitamin 1 tablet PO DAILY 12/03/19 01/01/20 pantoprazole 40 mg tablet,delayed 40 mg PO QAM 12/03/19 01/01/20 release pravastatin 40 mg tablet 40 mg PO DAILY 12/03/19 01/01/20 Allergies Allergy/AdvReac Type Severity Reaction Status Date / Time lisinopril Allergy troat and Verified 11/15/21 05:26 tounge swelling Review of Systems Review of Systems: CONSTITUTIONAL: Denies fever, chills, or sweats. EYES: Denies visual changes, redness, or discharge. ENT: Denies rhinorrhea, congestion, sore throat, or otalgia. CARDIOVASCULAR: Denies palpitations, or edema. RESPIRATORY: Denies cough. GASTROINTESTINAL: Denies abdominal pain, vomiting, or diarrhea. GENITOURINARY: Reports urinary urgency SKIN: Denies rash or itching. MUSCULOSKELETAL: Denies back pain, joint pain, or myalgia. NEUROLOGIC: Denies headache, numbness, dizziness, or weakness. PSYCHIATRIC: Denies anxiety or depression. All systems reviewed & are unremarkable except as noted in HPI and below PMFSH Past Medical History Medical History (Updated 11/15/21 @ 08:17 by Sorin Wilson MD) Anemia Asthma CKD (chronic kidney disease) Diabetes Gastroesophageal mucosal tear GI bleed x3 Mar 05, Jun 05, December 04 Gout History of blood clots History of blood transfusion 9 units HTN (hypertension) Melena Renal failure Thyroid disease Surgical History Surgical History H/O gastric bypass H/O: hysterectomy History of esophagogastroduodenoscopy (EGD) History of repair of hiatal hernia Family History Family History Father Heart attack Mother Diabetes mellitus Social History Social History Smoking status: Never smoker Alcohol intake: current Substance use: never Additional occupation/education comments: disability Gender identity (if verbalized by the patient): Female Sexual Orientation (if Verbalized by the Patient): Straight or Heterosexual Exam Narrative: GENERAL: Well-appearing, well-nourished, and in no acute distress. HEAD: Normocephalic, atraumatic. EYES: PERRLA and EOMI. ENT: Nares clear, no rhinorrhea or epistaxis. Mucous membranes moist. NECK: Supple. No masses. No JVD CHEST: Clear t
[2021-11-15] MEDS: CEPHALEXIN 500 MG CAPSULE PO (08:28)
[2021-11-15 08:38] VITALS: BP 152/79; PULSE 94; RESP 22; O2SAT 99
== END 2021-11-15 08:57 | disposition home or self-care (01) ==
PROVIDERS: Emergency Provider Emergency Medicine; PCP Family Medicine
DX: K20.80 Other esophagitis without bleeding (principal); N39.0 Urinary tract infection, site not specified; I12.9 Hypertensive chronic kidney disease with stage 1 through stage 4 chronic kidney disease, or unspecified chronic kidney disease; N18.9 Chronic kidney disease, unspecified; E11.22 Type 2 diabetes mellitus with diabetic chronic kidney disease; Z79.899 Other long term (current) drug therapy; Z98.84 Bariatric surgery status; Z90.710 Acquired absence of both cervix and uterus; Z86.2 Personal history of diseases of the blood and blood-forming organs and certain disorders involving the immune mechanism; Z87.19 Personal history of other diseases of the digestive system; Z87.09 Personal history of other diseases of the respiratory system
CPT/HCPCS: 36415; 71046; 80053; 81001; 83690; 84484; 85025; 85610; 85730; 87077; 87086; 87186; 93005; 99284; A9270

== ENCOUNTER 2021-11-18 09:52 | Observation (INO) | payer MEDICARE, SELFPAY ==
[2021-11-18 09:58] VITALS: BP 139/73; PULSE 91; RESP 18; TEMP 36.8; O2SAT 100
[2021-11-18 10:15] LABS: Basophils Percent Auto 0.4 % (0.2-1.2); Eosinophils Absolute Auto 0.1 K/mm3 (0-0.3); Eosinophils Percent Auto 2.5 % (0-4.4); Hematocrit 27.7 % (37.0-47.0); Hemoglobin 8.8 g/dL (12.0-15.0); Immature Granulocyte Absolute 0.02 K/mm3 (0.00-0.031); Immature Granulocyte Percent A 0.4 % (0-0.5); Lymphocytes Absolute Auto 0.91 K/mm3 (0.9-3.2); Lymphocytes Percent Auto 16.5 % (18.3-44.2); Mean Corpuscular HGB Conc 31.8 g/dl (32-36); Mean Corpuscular Hemoglobin 30.3 pg (26-34); Mean Corpuscular Volume 95.5 fl (80-100); Mean Platelet Volume 9.8 fl (7.4-10.4); Monocytes Absolute Auto 0.3 K/mm3 (0.1-0.6); Monocytes Percent Auto 5.5 % (2.6-8.5); Neutrophils Absolute Auto 4.1 K/mm3 (1.3-6.7); Neutrophils Percent Auto 74.7 % (45.5-73.1); Platelet Count Result 137 k/mm3 (150-375); Red Cell Distribution Width 16.4 % (11.5-14.5); White Blood Count 5.5 K/mm3 (4.5-10.0)
[2021-11-18 10:29] LABS: Alanine Aminotransferase 33 U/L (4-35); Albumin Level 3.9 g/dL (3.5-5.1); Alkaline Phosphatase 118 U/L (38-126); Anion Gap 8 mmol/L (8-16); Aspartate Amino Transferase 53 U/L (14-36); Bilirubin,Total 0.7 mg/dL (0.2-1.3); Blood Urea Nitrogen 50 mg/dL (7-17); Calcium 8.7 mg/dL (8.4-10.2); Carbon Dioxide 27 mmol/L (22-30); Chloride 104 mmol/L (98-107); Estimated CRCL calculation 31 ml/min; Estimated Glomerular Filt Rate 34; Glucose 211 mg/dL (65-110); Potassium 3.6 mmol/L (3.4-5.0); Sodium 139 mmol/L (137-145)
[2021-11-18 10:41] LABS: INR 1.1
[2021-11-18 10:42] LABS: Partial Thromboplastin Time 27.5 SECONDS (22.3-36.8)
--- NOTE | 2021-11-18 11:26 | ED.GIBLEED ---
HPI - GI Bleed General Chief complaint: GI Bleed Stated complaint: blood in stool Time Seen by Provider: 11/18/21 11:14 History of Present Illness HPI Narrative: 76-year-old female presents the emergency room for evaluation of a GI bleed. Patient states that she was seen here earlier this week for epigastric pain and was diagnosed with acid reflux and a urinary tract infection. Patient states yesterday she had a large bowel movement, that she noticed that he was tarry. Patient also states that she had 2 large bowel movements this morning both containing the tarry stool. Patient has a history of GI bleed. Related Data Home Medications Medication Instructions Recorded Confirmed allopurinol 100 mg tablet 100 mg PO DAILY 12/03/19 01/01/20 cholecalciferol (vitamin D3) 1,250 1,250 mcg PO MONTHLY 12/03/19 01/01/20 mcg (50,000 unit) capsule clotrimazole 1 % topical cream 1 applic TOPICAL Q12H 12/03/19 12/06/19 ferrous sulfate 325 mg (65 mg 325 mg PO DAILY 12/03/19 01/01/20 iron) tablet furosemide 40 mg tablet 40 mg PO QAM 12/03/19 01/01/20 glipizide 5 mg tablet 5 mg PO DAILY 12/03/19 01/01/20 glucosamine HCl 750 mg tablet 750 mg PO BID 12/03/19 01/01/20 levothyroxine 75 mcg capsule 75 mcg PO DAILY 12/03/19 01/01/20 metformin 500 mg tablet 500 mg PO DAILY 12/03/19 01/01/20 metoprolol succinate 25 mg 25 mg PO DAILY 12/03/19 01/01/20 tablet,extended release 24 hr multivitamin 1 tablet PO DAILY 12/03/19 01/01/20 pantoprazole 40 mg tablet,delayed 40 mg PO QAM 12/03/19 01/01/20 release pravastatin 40 mg tablet 40 mg PO DAILY 12/03/19 01/01/20 Allergies Allergy/AdvReac Type Severity Reaction Status Date / Time lisinopril Allergy troat and Verified 11/15/21 05:26 tounge swelling Review of Systems Review of Systems: CONSTITUTIONAL: Denies fever, chills, or sweats. EYES: Denies visual changes, redness, or discharge. ENT: Denies rhinorrhea, congestion, sore throat, or otalgia. CARDIOVASCULAR: Denies chest pain, palpitations, or edema. RESPIRATORY: Denies cough or dyspnea. GASTROINTESTINAL: Reports hematochezia, reports epigastric pain GENITOURINARY: Denies dysuria or hematuria. SKIN: Denies rash or itching. MUSCULOSKELETAL: Denies back pain, joint pain, or myalgia. NEUROLOGIC: Denies headache, numbness, dizziness, or weakness. PSYCHIATRIC: Denies anxiety or depression. [facility] Past Medical History Medical History (Updated 11/18/21 @ 14:04 by Luna Carlos PA-C) Anemia Asthma Chronic kidney disease Deep venous thrombosis Gastric ulcer Gastroesophageal mucosal tear GI bleed x3 in February 2019, May 2019, November 2019. Gout History of blood transfusion 9 units Hypertension Hypothyroidism Type 2 diabetes mellitus Surgical History Surgical History (Updated 11/18/21 @ 13:55 by Luna Carlos PA-C) History of colonoscopy with polypectomy History of esophagogastroduodenoscopy (EGD) History of gastric bypass (1974) History of hysterectomy History of repair of hiatal hernia Family History Family History Father Heart attack Mother Diabetes mellitus Social History Social History (Updated 11/18/21 @ 14:03 by Luna Carlos PA-C) Social History: Surrogate decision maker: Yolanda Sheikh, daughter. Code status: Full code. Smoking packs per day: 0.5 Smoking cigarettes per day: 10.0 Alcohol intake: current Alcohol use details: 1 glass of wine a week. Additional living arrangements comments: Lives in her own home in [place]. . Exam Narrative: GENERAL: Well-appearing, well-nourished, and in no acute distress. HEAD: Normocephalic, atraumatic. EYES: PERRLA and EOMI.D CHEST: Clear to auscultation. No respiratory distress. No wheezes rales or rhonchi HEART: Regular rate and rhythm. No murmur heard. Normal peripheral pulses. ABDOMEN: Soft, epigastric tenderness, nondistended, n
--- NOTE | 2021-11-18 13:30 | PM.IMHP ---
H&P: HPI History of Present Illness Date/Time: 11/18/21 13:30 Chief Complaint: Blood in stool. Narrative: This is a very pleasant 76-year-old female with history of gastric bypass surgery in 1974, recurrent GI bleeding, GERD, chronic kidney disease, diabetes, hypothyroidism, and iron deficiency anemia on iron supplementation who presented to the emergency department for evaluation of dark stools. She was seen in the ER several days ago with ?esophageal pain? and feelings as though her vitamins were getting stuck in the lower part of her esophagus when swallowing. She was diagnosed with probable pill esophagitis and a UTI and was discharged with prescriptions for famotidine, sucralfate, and cephalexin. She seems to be swallowing better and she is taking all prescribed medications though she reports having no symptoms suggestive of urinary tract infection. Unfortunately yesterday she had a large, black tarry stool and after having to similar stools today she came in for evaluation. Stool was Hemoccult positive and her hemoglobin was 2 g lower than what it was just 3 days ago and she is being admitted in this setting. She has not had a bowel movement since she has been at the hospital today and at this time she is resting comfortably and she has no complaints. In fact she is hungry and is asking for some food she has not eaten since last evening. No NSAID use. Review of Systems Review of Systems: Twelve systems were reviewed. She has felt a bit lightheaded over the last couple of days. She has also felt nauseated but she denies vomiting. Glucose has been running high in the morning, typically somewhere around 170 though it improves throughout the day. No blurry vision, polydipsia, or polyuria. While she is on iron supplementation, she really does not have dark stools. Except as documented, all other systems were reviewed and are negative. [facility] Past Medical History Medical History Anemia Asthma Chronic kidney disease Deep venous thrombosis Gastric ulcer Gastroesophageal mucosal tear GI bleed x3 in February 2019, May 2019, November 2019. Gout History of blood transfusion 9 units Hypertension Hypothyroidism Type 2 diabetes mellitus Surgical History Surgical History History of colonoscopy with polypectomy History of esophagogastroduodenoscopy (EGD) History of gastric bypass (1974) History of hysterectomy History of repair of hiatal hernia Family History Family History Father Heart attack Mother Diabetes mellitus Social History Social History Social History: Surrogate decision maker: Yolanda Sheikh, daughter. Code status: Full code. Smoking packs per day: 0.25 Smoking cigarettes per day: 5.0 Smoking status: Former smoker Alcohol intake: never Alcohol use details: 1 glass of wine a week. Substance use: never Substance use type: does not use Additional living arrangements comments: Lives in her own home in [place]. . Spiritual care concerns: No Meds Home Medications and Allergies Home Medications Medication Instructions Recorded Confirmed Type allopurinol 100 mg tablet 100 mg PO DAILY 12/03/19 11/18/21 History cholecalciferol (vitamin D3) 1,250 1,250 mcg PO DAILY 12/03/19 11/18/21 History mcg (50,000 unit) capsule ferrous sulfate 325 mg (65 mg 325 mg PO DAILY 12/03/19 11/18/21 History iron) tablet furosemide 40 mg tablet 40 mg PO QAM 12/03/19 11/18/21 History glipizide 5 mg tablet 5 mg PO DAILY 12/03/19 11/18/21 History glucosamine HCl 750 mg tablet 750 mg PO BID 12/03/19 11/18/21 History levothyroxine 75 mcg capsule 75 mcg PO DAILY 12/03/19 11/18/21 History metformin 500 mg tablet 500 mg PO DAILY 12/03/19 11/18/21 History metoprolo
[2021-11-18 14:36] LABS: SARS-CoV-2 RNA PCR Negative
[2021-11-18 16:01] VITALS: BP 130/69; PULSE 91; RESP 27; O2SAT 98
--- NOTE | 2021-11-18 16:04 | PC.NURSE ---
transferred to the floor with Protonix gtt infusing
[2021-11-18 16:25] VITALS: BP 141/70; PULSE 96; RESP 18; TEMP 36.3; O2SAT 99
[2021-11-18 18:58] LABS: Hematocrit 26.5 % (37.0-47.0); Hemoglobin 8.3 g/dL (12.0-15.0)
[2021-11-18 22:00] VITALS: BP 116/51; PULSE 81; RESP 17; TEMP 37.2; O2SAT 96
[2021-11-19] VITALS (13 sets, daily range): BP systolic 112–147; BP diastolic 50–79; PULSE 73–92; RESP 16–23; TEMP 36.5–37.2; O2SAT 93–99
[2021-11-19 00:52] LABS: Hematocrit 23.7 % (37.0-47.0); Hemoglobin 7.5 g/dL (12.0-15.0)
[2021-11-19 06:37] LABS: Hematocrit 23.8 % (37.0-47.0); Hemoglobin 7.5 g/dL (12.0-15.0)
[2021-11-19] MEDS: LEVOTHYROXINE SODIUM 75 MCG TABLET PO (06:46)
[2021-11-19] MEDS: SUCRALFATE 1 GM TABLET PO ×3 (06:46→23:07)
[2021-11-19 07:32] LABS: Glucose Point of Care 191 mg/dl (65-105)
[2021-11-19] MEDS: METOPROLOL SUCCINATE EXT REL 25 MG TABCR PO (08:49)
[2021-11-19] MEDS: CEPHALEXIN 500 MG CAPSULE PO ×2 (08:49→20:36)
--- NOTE | 2021-11-19 10:26 | PM.IMPN ---
Progress Note: A&P Assessment and Plan (1) GI bleed: Code(s): K92.2 - Gastrointestinal hemorrhage, unspecified Status: Acute Assessment and Plan: Suspected upper GI bleed with melena and history of bypass surgery. Continue Protonix drip started in ER. EGD 11/19/2021 GI consulted (2) Acute blood loss anemia: Code(s): D62 - Acute posthemorrhagic anemia Status: Acute Assessment and Plan: Secondary to GI bleed Hemoglobin has dropped 2 g in about 3 days. Trend hemoglobin and hematocrit. Transfuse if if hemoglobin below 7 (3) Chronic kidney disease: Code(s): N18.9 - Chronic kidney disease, unspecified Status: Chronic Assessment and Plan: Creatinine is likely near her baseline though BUN elevated, likely due to upper GI bleed. (4) Type 2 diabetes mellitus: Code(s): E11.9 - Type 2 diabetes mellitus without complications Status: Acute Assessment and Plan: Hold oral hypoglycemics as she is NPO. Continue sliding scale insulin, Accu-Cheks, and hypoglycemic protocol. Follow hemoglobin A1c. (5) Hypertension: Code(s): I10 - Essential (primary) hypertension Status: Acute Assessment and Plan: Blood pressures were reviewed and they are stable. Continue metoprolol and hold furosemide . (6) Hypothyroidism: Code(s): E03.9 - Hypothyroidism, unspecified Status: Acute Assessment and Plan: Continue levothyroxine follow TSH. Subjective Date/time seen: 11/19/21 10:26 Interval history: 76-year-old female with history of gastric bypass surgery in 1974, recurrent GI bleeding, GERD, chronic kidney disease, diabetes, hypothyroidism, and iron deficiency anemia on iron supplementation who presented to the emergency department for evaluation of dark stools. She was seen in the ER several days ago with ?esophageal pain? and feelings as though her vitamins were getting stuck in the lower part of her esophagus when swallowing. She was diagnosed with probable pill esophagitis and a UTI and was discharged with prescriptions for famotidine, sucralfate, and cephalexin. Patient was found to have acute blood loss anemia secondary to GI bleed GI was consulted EGD 11/19/2021 follow H&H Patient feels weak Patient denies fever headache chest pain shortness of breath I am seeing the patient for GI bleed Exam Narrative: Alert Chest no wheeze crackles Abdomen nontender nondistended CVS S1 + S2 Lower extremity edema Objective Data Vital Signs Vital Signs: Vital Signs - 24 hr 11/18/21 16:01 11/18/21 16:25 11/18/21 22:00 Temperature 97.4 F L 98.9 F Pulse Rate 91 96 81 Respiratory Rate 27 H 18 17 Blood Pressure 130/69 141/70 H 116/51 L Pulse Oximetry 98 99 96 11/19/21 05:37 11/19/21 08:00 11/19/21 08:49 Temperature 98.2 F Pulse Rate 92 92 Respiratory Rate 18 Blood Pressure 116/53 L 138/67 Pulse Oximetry 96 11/19/21 09:26 Temperature Pulse Rate Respiratory Rate Blood Pressure Pulse Oximetry 96 Intake/Output Intake/Output: Intake & Output 11/16/21 11/17/21 11/18/21 11/19/21 23:59 23:59 23:59 23:59 Intake Total 50 500 Output Total 200 Balance 50 300 Meds/Results Medications: Active Medications Generic Name Dose Route Start Last Admin Trade Name Chagoq PRN Reason Stop Dose Admin Allopurinol 100 mg 11/19/21 09:00 Allopurinol 100 Mg Tablet PO DAILY [facility] Cephalexin HCl 500 mg 11/18/21 21:25 11/19/21 08:49 Cephalexin 500 Mg Capsule PO 500 mg Q12HR RADHA Administration Dextrose 12.5 gm 11/18/21 21:20 Dextrose 50% 25 Gm/50 Ml Syringe IV PUSH PRN PRN Hypoglycemia Protocol Ergocalciferol unit 11/19/21 09:00 Ergocalciferol 50,000 Unit Capsule PO DAILY [facility] Famotidine 40 mg 11/19/21 21:00 Famotidine 20 Mg Tablet PO HS [facility] Ferrous Sulfate 324 mg 11/19/21 08:00 Ferrous Sulfate 324 Mg Tablet
[2021-11-19 10:39] LABS: Basophils Percent Auto 0.3 % (0.2-1.2); Eosinophils Absolute Auto 0.1 K/mm3 (0-0.3); Eosinophils Percent Auto 3.2 % (0-4.4); Hematocrit 26.4 % (37.0-47.0); Hemoglobin 8.1 g/dL (12.0-15.0); Immature Granulocyte Absolute 0.01 K/mm3 (0.00-0.031); Immature Granulocyte Percent A 0.3 % (0-0.5); Lymphocytes Absolute Auto 0.74 K/mm3 (0.9-3.2); Lymphocytes Percent Auto 21.6 % (18.3-44.2); Mean Corpuscular HGB Conc 30.7 g/dl (32-36); Mean Corpuscular Hemoglobin 29.9 pg (26-34); Mean Corpuscular Volume 97.4 fl (80-100); Mean Platelet Volume 10.3 fl (7.4-10.4); Monocytes Absolute Auto 0.2 K/mm3 (0.1-0.6); Monocytes Percent Auto 6.1 % (2.6-8.5); Neutrophils Absolute Auto 2.4 K/mm3 (1.3-6.7); Neutrophils Percent Auto 68.5 % (45.5-73.1); Platelet Count Result 112 k/mm3 (150-375); Red Blood Count 2.71 M/mm3 (4.2-5.4); Red Cell Distribution Width 16.2 % (11.5-14.5); White Blood Count 3.4 K/mm3 (4.5-10.0)
--- NOTE | 2021-11-19 10:47 | WPDGICN ---
Assessment and Plan Assessment and plan (1) GI bleed: Code(s): K92.2 - Gastrointestinal hemorrhage, unspecified Status: Acute Assessment and Plan: she was here with odynophagia after having sensation that one of her pills got stuck in chest, improved with carafate but here with melena will do egd to assess if ulcer, ? pill esophagitis, etc monitor for more signs of bleeding continue with iv protonix (2) Acute blood loss anemia: Code(s): D62 - Acute posthemorrhagic anemia Status: Acute Assessment and Plan: trend h/h, on iv protonix (3) Melena: Code(s): K92.1 - Melena Status: Acute (4) Odynophagia: Code(s): R13.10 - Dysphagia, unspecified Status: Acute Assessment and Plan: ? pill esophagitis carafate and ppi for now (5) Type 2 diabetes mellitus: Code(s): E11.9 - Type 2 diabetes mellitus without complications Status: Acute GI Consult Note Consult date/time: 11/19/21 10:47 Reason for consult: melena, epigastric discomfort HPI: Lynn Wylie is a 76 year old female with history of bariatric gastric surgery in 1975, recurrent GI bleeding (EGD in [address] Velez showed gastritis), colon polyp in 2018, GERD, chronic kidney disease, diabetes, hypothyroidism, and iron deficiency anemia on iron supplementation who came to the emergency department for evaluation of dark stools. She originally was seen in the ER several days ago after she had new onset of ?esophageal pain? and had sensation that one of her vitamins probably got stuck in the lower part of her esophagus when swallowing. She was diagnosed with probable pill esophagitis and a UTI and was discharged with prescriptions for famotidine, sucralfate, and cephalexin. Odynophagia improved with carafate but she is here after noted new onset of melena. Hb few days ago 10, on admission down to 8. Admitted to hospital, started on iv protonix. Review of Systems Constitutional: Constitutional: Denies headache(s) and Denies weakness Eyes: Eyes: Denies blurry vision ENT: Reports Normal hearing present, Denies headache(s) and Denies neck pain Cardiovascular: Cardiovascular: Denies chest pain and Denies dyspnea Respiratory: Respiratory: Denies dyspnea Gastrointestinal: Gastrointestinal: Reports no additional gastrointestinal complaints Genitourinary: Genitourinary: Denies dysuria Musculoskeletal: Musculoskeletal: Denies neck pain Integumentary/Breasts: Skin/Breast: Denies dry skin Neurologic: Reports Normal hearing present, Denies headache(s) and Denies weakness Psychiatric: Psychiatric: Denies anxiety Endocrine: Endocrine: Denies change in body appearance Hematologic/Lymphatic: Hematologic/Lymphatic: Denies easy bleeding Allergic/Immunologic: Allergic/Immunologic: Denies urticaria PMFSH Past Medical History Medical History (Updated 11/19/21 @ 15:48 by Maged Dugan MD) Anemia Asthma Chronic kidney disease Deep venous thrombosis Gastric ulcer Gastroesophageal mucosal tear GI bleed x3 in February 2019, May 2019, November 2019. Gout History of blood transfusion 9 units Hypertension Hypothyroidism Melena Odynophagia Type 2 diabetes mellitus Surgical History Surgical History History of colonoscopy with polypectomy History of esophagogastroduodenoscopy (EGD) History of gastric bypass (1974) History of hysterectomy History of repair of hiatal hernia Family History Family History Father Heart attack Mother Diabetes mellitus Social History Social History Social History: Surrogate decision maker: Yolanda Sheikh, daughter. Code status: Full code. Smoking packs per day: 0.25 Smoking cigarettes per day: 5.0 Smoking status: Former smoker Alcohol intake: nev
[2021-11-19 10:54] LABS: Alanine Aminotransferase 31 U/L (4-35); Albumin Level 3.4 g/dL (3.5-5.1); Alkaline Phosphatase 97 U/L (38-126); Anion Gap 6 mmol/L (8-16); Aspartate Amino Transferase 49 U/L (14-36); Bilirubin,Total 0.7 mg/dL (0.2-1.3); Blood Urea Nitrogen 34 mg/dL (7-17); Calcium 8.3 mg/dL (8.4-10.2); Carbon Dioxide 25 mmol/L (22-30); Chloride 107 mmol/L (98-107); Estimated CRCL calculation 36 ml/min; Estimated Glomerular Filt Rate 40; Glucose 179 mg/dL (65-110); Potassium 3.9 mmol/L (3.4-5.0); Sodium 138 mmol/L (137-145)
[2021-11-19] MEDS: LACTATED RINGERS 1,000 ML 150 ML IV CONT (11:29)
[2021-11-19 11:30] LABS: Glucose Point of Care 172 mg/dl (65-105)
--- NOTE | 2021-11-19 11:38 | WPDANESEPPF ---
Anes - Initial Pre Proc Eval Procedure: Operation Date: 11/19/21 12:30 Proposed Procedures p Esophagogastroduodenoscopy - Maged Dugan MD Date/Time: 11/19/21 11:38 Surgeon: John Arteaga MD Pre Op Diagnosis: GI Bleed Patient Data Age: 76 Gender: F Height: 1.63 m Weight: 91.2 kg Last Vital Signs Temp 36.5 C 11/19/21 11:32 Pulse 86 11/19/21 11:32 Resp 18 11/19/21 11:32 BP 147/62 H 11/19/21 11:32 Pulse Ox 97 11/19/21 11:32 Allergies Allergy/AdvReac Type Severity Reaction Status Date / Time lisinopril Allergy throat and Verified 11/18/21 17:37 tongue swelling Home Medications Medication Instructions Recorded Confirmed Type allopurinol 100 mg tablet 100 mg PO DAILY 12/03/19 11/18/21 History cholecalciferol (vitamin D3) 1,250 1,250 mcg PO DAILY 12/03/19 11/18/21 History mcg (50,000 unit) capsule ferrous sulfate 325 mg (65 mg 325 mg PO DAILY 12/03/19 11/18/21 History iron) tablet furosemide 40 mg tablet 40 mg PO QAM 12/03/19 11/18/21 History glipizide 5 mg tablet 5 mg PO DAILY 12/03/19 11/18/21 History glucosamine HCl 750 mg tablet 750 mg PO BID 12/03/19 11/18/21 History levothyroxine 75 mcg capsule 75 mcg PO DAILY 12/03/19 11/18/21 History metformin 500 mg tablet 500 mg PO DAILY 12/03/19 11/18/21 History metoprolol succinate 25 mg 25 mg PO DAILY 12/03/19 11/18/21 History tablet,extended release 24 hr multivitamin 1 tablet PO DAILY 12/03/19 11/18/21 History pantoprazole 40 mg tablet,delayed 40 mg PO QAM 12/03/19 11/18/21 History release pravastatin 40 mg tablet 40 mg PO DAILY 12/03/19 11/18/21 History cephalexin 500 mg PO Q12H #14 cap 11/15/21 11/18/21 Rx famotidine 40 mg PO HS #30 tablet 11/15/21 11/18/21 Rx sucralfate 1 g PO .q6 #30 tablet 11/15/21 11/18/21 Rx Laboratory Tests 11/18/21 11/18/21 11/19/21 13:54 18:52 00:26 WBC RBC Hgb 8.3 g/dL L g/dL 7.5 g/dL L g/dL (12.0-15.0) (12.0-15.0) Hct 26.5 % L % 23.7 % L % (37.0-47.0) (37.0-47.0) MCV MCH MCHC RDW Plt Count MPV Immature Gran % (Auto) Neut % (Auto) Lymph % (Auto) Bibb % (Auto) Eos % (Auto) Baso % (Auto) Lymph # (Auto) Bibb # (Auto) Eos # (Auto) Baso # (Auto) Abs Immat Gran (auto) Absolute Neuts (auto) Absolute Nucleated RBC Nucleated RBC % Sodium Potassium Chloride Carbon Dioxide Anion Gap BUN Creatinine Estim Creat Clear Calc Estimated GFR Glucose POC Capillary Glucose Calcium Total Bilirubin AST ALT Alkaline Phosphatase Total Protein Albumin SARS-CoV-2 RNA (RT-PCR) Negative 11/19/21 11/19/21 11/19/21 06:09 06:51 10:32 WBC 3.4 K/mm3 L K/mm3 (4.5-10.0) RBC 2.71 M/mm3 L M/mm3 (4.2-5.4) Hgb 7.5 g/dL L g/dL 8.1 g/dL L g/dL (12.0-15.0) (12.0-15.0) Hct 23.8 % L % 26.4 % L % (37.0-47.0) (37.0-47.0) MCV 97.4 fl fl (80-100) MCH 29.9 pg pg (26-34) MCHC 30.7 g/dl L g/dl (32-36) RDW 16.2 % H % (11.5-14.5) Plt Count 112 k/mm3 L k/mm3 (150-375) MPV 10.3 fl fl (7.4-10.4) Immature Gran % (Auto) 0.3 % % (0-0.5) Neut % (Auto) 68.5 % % (45.5-73.1) Lymph % (Auto) 21.6 % % (18.3-44.2) Bibb % (Auto) 6.1 % % (2.6-8.5) Eos % (Auto) 3.2 % % (0-4.4) Baso % (Auto) 0.3 % % (0.2-1.2) Lymph # (Auto) 0.74 K/mm3 L K/mm3 (0.9-3.2) Bibb # (Auto) 0.2 K/mm3 K/mm3 (0.1-0.6)
--- NOTE | 2021-11-19 13:15 | PC.NURSE ---
patient to gi lab per w/c at 1120. returning to floor per stretcher at 1315.
[2021-11-19 14:10] LABS: Glucose Point of Care 152 mg/dl (65-105)
[2021-11-19] MEDS: allopurinoL 100 MG TABLET PO (15:23)
[2021-11-19] MEDS: FERROUS SULFATE 324 MG TABLET PO (15:24)
[2021-11-19] MEDS: MULTIVITAMINS THERAPEUTIC TAB (*BKC) 1 TABLET PO (15:24)
--- NOTE | 2021-11-19 15:39 | PCCCNOTE ---
On 11/19/21, the student, [Jyoti Perez], provided care and completed [facility] documentation on this patient. I have reviewed the student's documentation and agree with the findings.
[2021-11-19 16:44] LABS: Glucose Point of Care 242 mg/dl (65-105)
[2021-11-19] MEDS: INSULIN ASPART (*BKC) 100 UNITS/ML SUB-Q (16:55)
[2021-11-19] MEDS: PANTOPRAZOLE SODIUM IV 40 MG VIAL IV PUSH (20:36)
[2021-11-19] MEDS: FAMOTIDINE 20 MG TABLET 40 MG PO (20:36)
[2021-11-19 21:01] LABS: Glucose Point of Care 177 mg/dl (65-105)
[2021-11-20] MEDS: SUCRALFATE 1 GM TABLET PO ×2 (05:37→12:16)
[2021-11-20] MEDS: LEVOTHYROXINE SODIUM 75 MCG TABLET PO (05:37)
[2021-11-20 05:44] VITALS: BP 130/64; PULSE 80; RESP 18; TEMP 36.9; O2SAT 94
[2021-11-20 06:40] LABS: Basophils Percent Auto 0.3 % (0.2-1.2); Eosinophils Absolute Auto 0.1 K/mm3 (0-0.3); Eosinophils Percent Auto 3.9 % (0-4.4); Hematocrit 25.6 % (37.0-47.0); Hemoglobin 8.1 g/dL (12.0-15.0); Immature Granulocyte Absolute 0.01 K/mm3 (0.00-0.031); Immature Granulocyte Percent A 0.3 % (0-0.5); Lymphocytes Absolute Auto 0.64 K/mm3 (0.9-3.2); Mean Corpuscular HGB Conc 31.6 g/dl (32-36); Mean Corpuscular Volume 94.8 fl (80-100); Mean Platelet Volume 9.9 fl (7.4-10.4); Monocytes Absolute Auto 0.2 K/mm3 (0.1-0.6); Neutrophils Absolute Auto 2.4 K/mm3 (1.3-6.7); Neutrophils Percent Auto 70.5 % (45.5-73.1); Platelet Count Result 110 k/mm3 (150-375); Red Cell Distribution Width 16.2 % (11.5-14.5); White Blood Count 3.4 K/mm3 (4.5-10.0)
[2021-11-20 06:53] LABS: Alanine Aminotransferase 30 U/L (4-35); Albumin Level 3.1 g/dL (3.5-5.1); Alkaline Phosphatase 97 U/L (38-126); Anion Gap 4 mmol/L (8-16); Aspartate Amino Transferase 47 U/L (14-36); Bilirubin,Total 0.6 mg/dL (0.2-1.3); Blood Urea Nitrogen 26 mg/dL (7-17); Calcium 8.4 mg/dL (8.4-10.2); Carbon Dioxide 29 mmol/L (22-30); Chloride 107 mmol/L (98-107); Estimated CRCL calculation 33 ml/min; Estimated Glomerular Filt Rate 36; Glucose 176 mg/dL (65-110); Sodium 140 mmol/L (137-145)
[2021-11-20 08:00] VITALS: BP 118/63; PULSE 72; RESP 16; TEMP 36.7; O2SAT 100
[2021-11-20 08:25] VITALS: PULSE 80
[2021-11-20 08:25] LABS: Glucose Point of Care 175 mg/dl (65-105)
[2021-11-20] MEDS: METOPROLOL SUCCINATE EXT REL 25 MG TABCR PO (08:25)
[2021-11-20] MEDS: FERROUS SULFATE 324 MG TABLET PO (08:25)
[2021-11-20] MEDS: FUROSEMIDE 40 MG TABLET PO (08:25)
[2021-11-20] MEDS: allopurinoL 100 MG TABLET PO (08:25)
[2021-11-20] MEDS: CEPHALEXIN 500 MG CAPSULE PO (08:25)
[2021-11-20] MEDS: MULTIVITAMINS THERAPEUTIC TAB (*BKC) 1 TABLET PO (08:25)
[2021-11-20] MEDS: PANTOPRAZOLE SODIUM IV 40 MG VIAL IV PUSH (08:25)
--- NOTE | 2021-11-20 09:22 | PM.DS ---
DS: Admitting Diagnosis Discharge Date 11/20/2021 Admitting Diagnosis GI bleed DS: Discharge Diagnosis Discharge Diagnosis (1) GI bleed: Code(s): K92.2 - Gastrointestinal hemorrhage, unspecified Status: Acute Assessment and Plan: Associated with acute blood loss anemia secondary to GI bleed secondary to esophageal ulcer and gastritis. Status post Protonix drip started in ER. EGD 11/19/2021 shows gastritis and esophageal ulcer status post biopsy follow-up with GI as outpatient patient will be discharged on Protonix and Carafate repeat EGD in 6 weeks GI consulted (2) Acute blood loss anemia: Code(s): D62 - Acute posthemorrhagic anemia Status: Acute Assessment and Plan: Secondary to GI bleed Hemoglobin has dropped 2 g in about 3 days. Repeat CBC in 1 week (3) Chronic kidney disease: Code(s): N18.9 - Chronic kidney disease, unspecified Status: Chronic Assessment and Plan: Creatinine is likely near her baseline though BUN elevated, likely due to upper GI bleed. (4) Type 2 diabetes mellitus: Code(s): E11.9 - Type 2 diabetes mellitus without complications Status: Acute Assessment and Plan: Hold oral hypoglycemics as she is NPO. Continue sliding scale insulin, Accu-Cheks, and hypoglycemic protocol. Follow hemoglobin A1c. (5) Hypertension: Code(s): I10 - Essential (primary) hypertension Status: Acute Assessment and Plan: Blood pressures were reviewed and they are stable. Continue metoprolol and hold furosemide . (6) Hypothyroidism: Code(s): E03.9 - Hypothyroidism, unspecified Status: Acute Assessment and Plan: Continue levothyroxine DS: Summary Hospital Course Hospital Course: 76-year-old female with history of gastric bypass surgery in 1974, recurrent GI bleeding, GERD, chronic kidney disease, diabetes, hypothyroidism, and iron deficiency anemia on iron supplementation who presented to the emergency department for evaluation of dark stools. She was seen in the ER several days ago with ?esophageal pain? and feelings as though her vitamins were getting stuck in the lower part of her esophagus when swallowing. She was diagnosed with probable pill esophagitis and a UTI and was discharged with prescriptions for famotidine, sucralfate, and cephalexin. Patient was found to have acute blood loss anemia secondary to GI bleed GI was consulted EGD 11/19/2021 showed esophageal ulcer and gastritis status post biopsy patient will be discharged on Carafate and Protonix follow-up with GI as outpatient GI recommended repeat EGD in 6 weeks. Time Spent with Patient Time attestation: Total time spent providing and/or coordinating discharge services:25 Exam Narrative: Alert Chest no wheeze crackles Abdomen nontender nondistended CVS S1 + S2 Lower extremity edema DS: Data Data Completed and Pending Pending studies at discharge: Pending at discharge 11/19/21 12:37 Surgical [PTH] Routine Labs on day of discharge: Labs from last 24 hours 11/20/21 11/20/21 11/20/21 08:01 06:27 06:27 WBC 3.4 L RBC 2.70 L Hgb 8.1 L Hct 25.6 L MCV 94.8 MCH 30.0 MCHC 31.6 L RDW 16.2 H Plt Count 110 L MPV 9.9 Immature Gran % (Auto) 0.3 Neut % (Auto) 70.5 Lymph % (Auto) 19.0 [place] % (Auto) 6.0 Eos % (Auto) 3.9 Baso % (Auto) 0.3 Lymph # (Auto) 0.64 L [place] # (Auto) 0.2 Eos # (Auto) 0.1 Baso # (Auto) 0.0 Abs Immat Gran (auto) 0.01 Absolute Neuts (auto) 2.4 Absolute Nucleated RBC 0.0 Nucleated RBC % 0.0 Sodium 140 Potassium 4.0 Chloride 107 Carbon Dioxide 29 Anion Gap 4 L BUN 26 H Creatinine 1.40 H Estim Creat Clear Calc 33 Estimated GFR 36 L Glucose 176 H POC Capillary Glucose 175 H Calcium 8.4 Total Bilirubin 0.6 AST 47 H ALT 30 Alkaline Phosphatase 97 Total Protein
[2021-11-20 11:13] VITALS: BP 135/63; PULSE 70; RESP 15; TEMP 36.6; O2SAT 99
[2021-11-20 11:14] VITALS: BP 126/58; PULSE 81; RESP 16; TEMP 36.7; O2SAT 98
[2021-11-20 12:07] LABS: Glucose Point of Care 275 mg/dl (65-105)
[2021-11-20] MEDS: INSULIN ASPART (*BKC) 100 UNITS/ML SUB-Q (12:16)
--- NOTE | 2021-11-20 14:53 | PCCCNOTE ---
On 11/20/21, the student, [ Peggy Perez ], provided care and completed [facility] documentation on this patient. I have reviewed the student's documentation and agree with the findings.
== END 2021-11-20 14:18 | disposition home or self-care (01) ==
LOC: ANHED 14:51 → ANH3MEDSUR 15:00
PROVIDERS: Emergency Medicine; Internal Medicine Gastroenterology; Physician Assistant; Admitting Provider Internal Medicine; Emergency Provider Nurse Practitioner Family; PCP Family Medicine; Visit Provider Internal Medicine
PROC: 0DJ08ZZ Inspection of Upper Intestinal Tract, Via Natural or Artificial Opening Endoscopic (ICD-10-PCS; CPT 43235; principal; 2021-11-19 12:30)
DX: K22.10 Ulcer of esophagus without bleeding (principal); K92.1 Melena; K29.70 Gastritis, unspecified, without bleeding; R13.10 Dysphagia, unspecified; I12.9 Hypertensive chronic kidney disease with stage 1 through stage 4 chronic kidney disease, or unspecified chronic kidney disease; D62 Acute posthemorrhagic anemia; E11.22 Type 2 diabetes mellitus with diabetic chronic kidney disease; E03.9 Hypothyroidism, unspecified; N18.9 Chronic kidney disease, unspecified; M10.9 Gout, unspecified; K21.9 Gastro-esophageal reflux disease without esophagitis; D63.1 Anemia in chronic kidney disease; D50.9 Iron deficiency anemia, unspecified; Z86.718 Personal history of other venous thrombosis and embolism; Z98.84 Bariatric surgery status; Z90.710 Acquired absence of both cervix and uterus; Z79.84 Long term (current) use of oral hypoglycemic drugs; Z20.822 Contact with and (suspected) exposure to COVID-19
CPT/HCPCS: 43239; 36415; 80053; 82948; 85014; 85018; 85025; 85610; 85730; 86850; 86900; 86901; 88305; 96365; 96366; 99285; A9270; C9113; C9803; G0378; J1815; J2704; J7060; J7120; U0003; U0005

== ENCOUNTER 2022-01-18 12:32 | Inpatient (IN) | payer MEDICARE, SELFPAY ==
[2022-01-18] VITALS (29 sets, daily range): BP systolic 108–148; BP diastolic 48–96; PULSE 96–109; RESP 16–30; TEMP 36.4–36.8; O2SAT 94–100; BMI 35.7
--- NOTE | ~2022-01-18 | CT_ITS ---
EXAMINATION: CT abdomen pelvis w con DATE: 01/18/2022 14:24 INDICATION: Epigastric abdominal pain. History of ulcer. TECHNIQUE: Computed tomography (CT) of the abdomen and pelvis was performed with 100 CC Omnipaque 300 intravenous contrast. Automated exposure control and iterative reconstruction technique were employe d. Exam dose: 1416.47 mGy-cm total exam DLP. COMPARISON: 07/18/2020 CT abdomen pelvis FINDINGS: Mild discoid atelectasis or scarring in the base of the medial segment of the middle lobe a nd the anteromedial base of the lingula Bilateral fat-containing foramen of [place] hernias. Normal heart size. No pericardial or pleural effusion. Up to 6.7 cm wide umbilical hernia containing fat and a short segment of the transverse colon without apparent strangulation or obstruction. . Prominent surface nodularity of the liver consistent with cirrhosis. There is mild ascites. There is splenomegaly. Varices are identified. Surgical clips, left upper quadrant of the abdomen. Innumerable small gallstones are noted. No bile duct or pancreatic duct dilatation is evident. No ibarra creatic mass lesion, calcification or ductal dilatation. There is peripancreatic stranding at the hea d and neck, suggesting acute interstitial pancreatitis. Clinical correlation is advised. Normal morphology of the adrenal glands. No renal mass lesion or urinary tract calculus or hydroureteronephrosis. The urinary bladder is unrem arkable. There is extensive atherosclerotic calcification of the abdominal aorta and prominent calcification o f the origins of the renal arteries and celiac and superior mesenteric and inferior mesenteric arteri es. No abdominal aortic aneurysm. No intraperitoneal or retroperitoneal or pelvic mass lesion or mo opathy is noted. No bowel obstruction. Degenerative changes of the thoracic and lumbar spine. No suspicious osteolytic or osteoblastic lesio ns are noted. IMPRESSION: Cirrhosis, splenomegaly, varices Mild ascites Cholelithiasis Mild peripancreatic stranding is again noted at the pancreatic head and neck; recommend clinical sergei elation for acute pancreatitis Umbilical hernia containing short segment of transverse colon without strangulation or obstruction Reviewed, dictated and finalized at [facility]. Reviewed, dictated and finalized at [facility]. IMPRESSION: Cirrhosis, splenomegaly, varices Mild ascites Cholelithiasis Mild peripancreatic stranding is again noted at the pancreatic head and neck; r ecommend clinical correlation for acute pancreatitis Umbilical hernia containing short segment of transverse colon without strangula tion or obstruction
--- NOTE | 2022-01-18 12:52 | ED.GIBLEED ---
HPI - GI Bleed General Chief complaint: GI Bleed Stated complaint: GI Bleeding, Vomiting Blood Time Seen by Provider: 01/18/22 12:38 Source: patient History of Present Illness HPI Narrative: Patient presents with concern for GI bleed. Reports a history of the same. Today's episode started yesterday she reports her was dark tarry stools as well as bright red blood in her stool. She also reports vomiting bright red blood. States consistent with her prior GI bleeds so she came to ER for further evaluation. She reports she has previously been admitted had EGDs and colonoscopies as well as needed blood patients. She also feels very weak and tired she also reports epigastric abdominal pain that achy, constant, no clear aggravating or alleviating factors, no radiation. Denies any urinary symptoms or chest pain she denies any fevers, cough, congestion. Related Data Home Medications Medication Instructions Recorded Confirmed allopurinol 100 mg tablet 100 mg PO DAILY 12/03/19 01/04/22 cholecalciferol (vitamin D3) 1,250 1,250 mcg PO DAILY 12/03/19 01/04/22 mcg (50,000 unit) capsule ferrous sulfate 325 mg (65 mg 325 mg PO BID 12/03/19 01/04/22 iron) tablet (FeroSul) furosemide 40 mg tablet 40 mg PO QAM 12/03/19 01/04/22 glipizide 5 mg tablet 5 mg PO DAILY 12/03/19 01/04/22 glucosamine HCl 750 mg tablet 750 mg PO BID 12/03/19 01/04/22 levothyroxine 75 mcg capsule 75 mcg PO DAILY 12/03/19 01/04/22 metformin 500 mg tablet 500 mg PO DAILY 12/03/19 01/04/22 metoprolol succinate 25 mg 25 mg PO DAILY 12/03/19 01/04/22 tablet,extended release 24 hr multivitamin (Daily Multi-Vitamin 1 tablet PO DAILY 12/03/19 01/04/22 tablet) atorvastatin 20 mg tablet 20 mg PO DAILY 01/04/22 01/04/22 Allergies Allergy/AdvReac Type Severity Reaction Status Date / Time lisinopril Allergy throat and Verified 01/18/22 12:49 tongue swelling Review of Systems Review of Systems: CONSTITUTIONAL: Denies fever, chills, or sweats. EYES: Denies visual changes, redness, or discharge. ENT: Denies rhinorrhea, congestion, sore throat, or otalgia. CARDIOVASCULAR: Denies chest pain, palpitations, or edema. RESPIRATORY: Denies cough or dyspnea. GASTROINTESTINAL: Reports abdominal pain and diffuse GENITOURINARY: Denies dysuria or hematuria. SKIN: Denies rash or itching. MUSCULOSKELETAL: Denies back pain, joint pain, or myalgia. NEUROLOGIC: Denies headache, numbness, dizziness, or weakness. PSYCHIATRIC: Denies anxiety or depression. [facility] Past Medical History Medical History Anemia Asthma Chronic kidney disease Deep venous thrombosis Gastric ulcer Gastroesophageal mucosal tear GI bleed x3 in February 2019, May 2019, November 2019. Gout History of blood transfusion 9 units Hypertension Hypothyroidism Melena Odynophagia Type 2 diabetes mellitus Surgical History Surgical History History of colonoscopy with polypectomy History of esophagogastroduodenoscopy (EGD) History of gastric bypass (1975) History of hysterectomy History of repair of hiatal hernia Family History Family History Father Heart attack Mother Diabetes mellitus Social History Social History Social History: Surrogate decision maker: Yolanda Sheikh, daughter. Code status: Full code. Smoking packs per day: 0.25 Smoking cigarettes per day: 5.0 Years smoked: 30 Smoking pack-years: 7.50 Smoking status: Former smoker Tobacco type: cigarettes Alcohol intake: current Drinks per week: 1 Alcohol use details: 1 glass wine weekly Substance use: never Substance use type: does not use Additional living arrangements comments: Lives in her own home in [place]. . Spiritual care concerns: No Exam Narrative
[2022-01-18] MEDS: PANTOPRAZOLE SODIUM IV 40 MG VIAL 80 MG IV PUSH (13:22)
[2022-01-18] MEDS: ONDANSETRON INJ 4 MG/2 ML VIAL IV PUSH ×2 (13:22→16:23)
[2022-01-18 13:31] LABS: Alanine Aminotransferase 26 U/L (6-35); Alkaline Phosphatase 90 U/L (38-126); Anion Gap 11 mmol/L (8-16); Aspartate Amino Transferase 37 U/L (14-36); Bilirubin,Total 0.6 mg/dL (0.2-1.3); Blood Urea Nitrogen 64 mg/dL (7-17); Calcium 8.5 mg/dL (8.4-10.2); Carbon Dioxide 19 mmol/L (22-30); Chloride 106 mmol/L (98-107); Estimated CRCL calculation 34 ml/min; Estimated Glomerular Filt Rate 36; Glucose 198 mg/dL (65-110); Lipase 83 U/L (23-300); Magnesium 1.7 mg/dL (1.6-2.3); Potassium 4.9 mmol/L (3.4-5.0); Sodium 136 mmol/L (137-145)
[2022-01-18 14:05] LABS: INR 1.4; Partial Thromboplastin Time 26.6 SECONDS (22.3-36.8); Prothrombin Time 16.9 Seconds (11.1-14.7)
[2022-01-18 15:21] LABS: SARS-CoV-2 RNA PCR Negative
[2022-01-18 16:04] LABS: Basophils Percent Auto 0.2 % (0.2-1.2); Eosinophils Percent Auto 0.3 % (0-4.4); Immature Granulocyte Absolute 0.09 K/mm3 (0.00-0.031); Immature Granulocyte Percent A 0.7 % (0-0.5); Lymphocytes Absolute Auto 1.56 K/mm3 (0.9-3.2); Lymphocytes Percent Auto 11.7 % (18.3-44.2); Mean Corpuscular HGB Conc 31.5 g/dl (32-36); Mean Corpuscular Hemoglobin 28.8 pg (26-34); Mean Corpuscular Volume 91.3 fl (80-100); Mean Platelet Volume 10.1 fl (7.4-10.4); Monocytes Absolute Auto 0.5 K/mm3 (0.1-0.6); Neutrophils Absolute Auto 11.1 K/mm3 (1.3-6.7); Neutrophils Percent Auto 83.1 % (45.5-73.1); Platelet Count Result 183 k/mm3 (150-375); Red Blood Count 2.19 M/mm3 (4.2-5.4); Red Cell Distribution Width 18.6 % (11.5-14.5); White Blood Count 13.3 K/mm3 (4.5-10.0)
[2022-01-18 16:12] LABS: Hemoglobin 6.3 g/dL (12.0-15.0)
[2022-01-18] MEDS: fentaNYL CITRATE INJ (*CRX) 100 MCG/2 ML VIAL 50 MCG IV PUSH (16:23)
[2022-01-18] MEDS: FAMOTIDINE 20 MG/2 ML VIAL IV PUSH ×2 (16:23→23:40)
[2022-01-18 16:34] LABS: IFOB Positive Control Positive; Immunochemical Fecal Occult Bl Positive (N)
[2022-01-18] MEDS: SODIUM CHLORIDE 0.9% IV 250 ML 30 ML IV CONT (16:40)
[2022-01-18] MEDS: TUBING, BLOOD PLUM PUMP TUBING 1 EACH XX (16:40)
--- NOTE | 2022-01-18 17:01 | PM.IMHP ---
H&P: HPI History of Present Illness Date/Time: Patient was placed observation status for expected length of stay less than 23 hours for management, will plan to re-evaluate tomorrow for improvement. 01/18/22 17:01 Chief Complaint: GI bleed Narrative: Ms. Wylie is a 76-year-old female who presented to the emergency room with complaints of GI bleed. Patient states she has a significant history of upper and lower GI bleeds. Patient states that yesterday she had 1 bright red stool and then today she started having very dark tarry stools. Patient states she has been nauseated for the last 2 days and today she did vomit 1 time bright red blood. Patient denies any chest pain, shortness breast, lightheadedness, dizziness, syncopal, or near syncopal episodes. Patient states she has been taking all medications as ordered by her fluxer. Patient denies taking any NSAIDs or aspirin. Patient states that this occurs so often that she is very well aware what she should and should not be taking medication garsia. Upon evaluation in emergency room patient was noted to have a hemoglobin of 6.3 which is decreased from 8.1 in November of this year. In November patient did come in with similar complaints and underwent EGD and patient was noted to have a single crater ulcers ranging in size from 15 mm to 20 mm that were visualized in the proximal esophagus at 25 cm from incisors. The ulcers were clean based without signs of bleeding. There were no AVMs, no stigmata of bleeding. Today patient was noted to have a positive Hemoccult stool. And mild elevation in her kidney function. Patient has a known history of gastric bypass surgery in 1974, recurrent GI bleeds, GERD, chronic kidney disease, diabetes mellitus, hypothyroidism, and iron deficiency anemia. Review of Systems Review of Systems: A 12 point review of systems was completed patient all pertinent positive and negative per HPI the remainder are unremarkable. [facility] Past Medical History Medical History Anemia Asthma Chronic kidney disease Deep venous thrombosis Gastric ulcer Gastroesophageal mucosal tear GI bleed x3 in February 2019, May 2019, November 2019. Gout History of blood transfusion 9 units Hypertension Hypothyroidism Melena Odynophagia Type 2 diabetes mellitus Surgical History Surgical History History of colonoscopy with polypectomy History of esophagogastroduodenoscopy (EGD) History of gastric bypass (1974) History of hysterectomy History of repair of hiatal hernia Family History Family History Father Heart attack Mother Diabetes mellitus Social History Social History Social History: Surrogate decision maker: Yolanda Sheikh, daughter. Code status: Full code. Smoking packs per day: 0.25 Smoking cigarettes per day: 5.0 Years smoked: 30 Smoking pack-years: 7.50 Smoking status: Former smoker Tobacco type: cigarettes Alcohol intake: current Drinks per week: 1 Alcohol use details: 1 glass wine weekly Substance use: never Substance use type: does not use Additional living arrangements comments: Lives in her own home in [place]. . Spiritual care concerns: No Meds Home Medications and Allergies Home Medications Medication Instructions Recorded Confirmed Type allopurinol 100 mg tablet 100 mg PO DAILY 12/03/19 01/04/22 History cholecalciferol (vitamin D3) 1,250 1,250 mcg PO DAILY 12/03/19 01/04/22 History mcg (50,000 unit) capsule ferrous sulfate 325 mg (65 mg 325 mg PO BID 12/03/19 01/04/22 History iron) tablet (FeroSul) furosemide 40 mg tablet 40 mg PO QAM 12/03/19 01/04/22 History glipizide 5 mg tablet 5 mg PO DAILY 12/03/19 01/04/22 History glucosamine HCl 750 mg tablet 750 mg P
--- NOTE | 2022-01-18 20:28 | PC.NURSE ---
Called IMU to give report, Nurse was busy at the moment. Will call back.
--- NOTE | 2022-01-18 21:10 | ADMGEN ---
This patient, Lynn Wylie, was admitted to IMU Room 209- at 2105. Patient/family oriented to hospital policies and general routines including ID bracelet, bed and alarms, visiting hours, pain management, procedures, bathroom and other care routines, personal items, smoking policy, room service/diet, and visiting hours. Information on how to activate the Rapid Response Team has been discussed. Patient/Family are encouraged to report perceived risks to care and to ask questions if they do not understand what they are told or what they should do.
[2022-01-18] MEDS: SODIUM CHLORIDE 0.9% IV 1,000 ML 125 ML IV CONT (21:32)
[2022-01-18 22:23] LABS: Hematocrit 23.9 % (37.0-47.0); Hemoglobin 7.6 g/dL (12.0-15.0)
[2022-01-19] VITALS (25 sets, daily range): BP systolic 106–149; BP diastolic 32–106; PULSE 91–113; RESP 16–22; TEMP 36.2–37.2; O2SAT 96–100
[2022-01-19 05:28] LABS: Basophils Percent Auto 0.2 % (0.2-1.2); Eosinophils Absolute Auto 0.1 K/mm3 (0-0.3); Immature Granulocyte Absolute 0.05 K/mm3 (0.00-0.031); Immature Granulocyte Percent A 0.5 % (0-0.5); Lymphocytes Absolute Auto 1.57 K/mm3 (0.9-3.2); Lymphocytes Percent Auto 16.8 % (18.3-44.2); Mean Corpuscular HGB Conc 33.5 g/dl (32-36); Mean Corpuscular Hemoglobin 29.8 pg (26-34); Mean Corpuscular Volume 88.9 fl (80-100); Mean Platelet Volume 10.1 fl (7.4-10.4); Monocytes Absolute Auto 0.7 K/mm3 (0.1-0.6); Monocytes Percent Auto 7.1 % (2.6-8.5); Neutrophils Percent Auto 74.4 % (45.5-73.1); Platelet Count Result 128 k/mm3 (150-375); Red Blood Count 2.25 M/mm3 (4.2-5.4); Red Cell Distribution Width 17.8 % (11.5-14.5); White Blood Count 9.4 K/mm3 (4.5-10.0)
[2022-01-19 05:30] LABS: Hemoglobin 6.7 g/dL (12.0-15.0)
[2022-01-19 05:39] LABS: Alanine Aminotransferase 23 U/L (6-35); Albumin Level 2.7 g/dL (3.5-5.1); Alkaline Phosphatase 79 U/L (38-126); Anion Gap 5 mmol/L (8-16); Aspartate Amino Transferase 29 U/L (14-36); Bilirubin,Total 0.8 mg/dL (0.2-1.3); Blood Urea Nitrogen 76 mg/dL (7-17); Calcium 8.1 mg/dL (8.4-10.2); Carbon Dioxide 26 mmol/L (22-30); Chloride 107 mmol/L (98-107); Estimated CRCL calculation 26 ml/min; Estimated Glomerular Filt Rate 27; Glucose 171 mg/dL (65-110); Magnesium 1.7 mg/dL (1.6-2.3); Potassium 4.4 mmol/L (3.4-5.0); Sodium 138 mmol/L (137-145)
[2022-01-19 09:29] LABS: Glucose Point of Care 210 mg/dl (65-105)
[2022-01-19] MEDS: FAMOTIDINE 20 MG/2 ML VIAL IV PUSH (09:33)
[2022-01-19 10:04] LABS: Hematocrit 21.5 % (37.0-47.0)
[2022-01-19 10:05] LABS: Hemoglobin 6.9 g/dL (12.0-15.0)
[2022-01-19] MEDS: LACTATED RINGERS 1,000 ML 150 ML IV CONT (10:16)
[2022-01-19 10:22] LABS: Glucose Point of Care 204 mg/dl (65-105)
--- NOTE | 2022-01-19 10:40 | WPDANESEPPF ---
Anes - Initial Pre Proc Eval Procedure: Operation Date: 01/19/22 14:30 Proposed Procedures p Esophagogastroduodenoscopy - Maged Dugan MD Date/Time: 01/19/22 10:40 Surgeon: Christi Perdomo DO Pre Op Diagnosis: GI Bleed Patient Data Age: 76 Gender: F Height: 1.63 m Weight: 94.5 kg Last Vital Signs Temp 98.4 F 01/19/22 10:15 Pulse 108 H 01/19/22 10:15 Resp 20 01/19/22 10:15 BP 133/48 L 01/19/22 10:15 Pulse Ox 99 01/19/22 10:15 O2 Del Method Room Air 01/19/22 10:15 Allergies Allergy/AdvReac Type Severity Reaction Status Date / Time lisinopril Allergy throat and Verified 01/19/22 10:13 tongue swelling Home Medications Medication Instructions Recorded Confirmed Type allopurinol 100 mg tablet 100 mg PO DAILY 12/03/19 01/18/22 History cholecalciferol (vitamin D3) 1,250 1,250 mcg PO DAILY 12/03/19 01/18/22 History mcg (50,000 unit) capsule ferrous sulfate 325 mg (65 mg 325 mg PO BID 12/03/19 01/18/22 History iron) tablet (FeroSul) furosemide 40 mg tablet 40 mg PO QAM 12/03/19 01/18/22 History glipizide 5 mg tablet 5 mg PO DAILY 12/03/19 01/18/22 History glucosamine HCl 750 mg tablet 750 mg PO BID 12/03/19 01/18/22 History levothyroxine 75 mcg capsule 75 mcg PO DAILY 12/03/19 01/18/22 History metformin 500 mg tablet 500 mg PO DAILY 12/03/19 01/18/22 History metoprolol succinate 25 mg 25 mg PO DAILY 12/03/19 01/18/22 History tablet,extended release 24 hr multivitamin (Daily Multi-Vitamin 1 tablet PO DAILY 12/03/19 01/18/22 History tablet) pantoprazole 40 mg tablet,delayed 40 mg PO BID 6 weeks #84 tabs 11/20/21 01/18/22 Rx release atorvastatin 20 mg tablet 20 mg PO DAILY 01/04/22 01/18/22 History Laboratory Tests 07/11/0601/18/22 01/18/22 13:09 13:09 13:48 WBC RBC Hgb Hct MCV MCH MCHC RDW Plt Count MPV Immature Gran % (Auto) Neut % (Auto) Lymph % (Auto) [place] % (Auto) Eos % (Auto) Baso % (Auto) Lymph # (Auto) [place] # (Auto) Eos # (Auto) Baso # (Auto) Abs Immat Gran (auto) Absolute Neuts (auto) Absolute Nucleated RBC Nucleated RBC % PT 16.9 Seconds H Seconds (11.1-14.7) INR 1.4 APTT 26.6 SECONDS SECONDS (22.3-36.8) Sodium 136 mmol/L L mmol/L (137-145) Potassium 4.9 mmol/L mmol/L (3.4-5.0) Chloride 106 mmol/L mmol/L (98-107) Carbon Dioxide 19 mmol/L L mmol/L (22-30) Anion Gap 11 mmol/L mmol/L (8-16) BUN 64 mg/dL H D mg/dL (7-17) Creatinine 1.40 mg/dL H mg/dL (0.7-1.0) Estim Creat Clear Calc 34 ml/min ml/min Estimated GFR 36 L (59 - ) Glucose 198 mg/dL H mg/dL (65-110) POC Capillary Glucose Calcium 8.5 mg/dL mg/dL (8.4-10.2) Magnesium 1.7 mg/dL mg/dL (1.6-2.3) Total Bilirubin 0.6 mg/dL mg/dL (0.2-1.3) AST 37 U/L H U/L (14-36) ALT 26 U/L U/L (6-35) Alkaline Phosphatase 90 U/L U/L (38-126) Total Protein 5.0 g/dL L g/dL (6.3-8.2) Albumin 3.0 g/dL L g/dL (3.5-5.1) Lipase 83 U/L U/L (23-300) Stl Occult Blood (IFOB) SARS-CoV-2 RNA (RT-PCR) Blood Type B Positive Antibody Screen Negative Enhanced Crossmatch See Detail 01/18/22 01/18/22 01/18/22 13:59 15:58 16:15 WBC 13.3 K/mm3 H K/mm3 (4.5-10.0) RBC 2.19 M/mm3 L M/mm3 (4.2-5.4) Hgb 6.3 g/dL L* g/dL (12.0-15.0) Hct 20.0 % L* % (37.0-47.0) MCV 91.3 fl fl (80-100) MCH 28.8 pg pg (26-34) MCHC 31.
--- NOTE | 2022-01-19 10:46 | WPDGICN ---
Assessment and Plan Assessment and plan (1) Acute GI bleeding: Code(s): K92.2 - Gastrointestinal hemorrhage, unspecified Status: Acute Assessment and Plan: will proceed with urgent EGD (last time she had GIB but it was secondary to localized esophageal ulcer from pill esophagitis) she is getting a second unit of prbc started on iv protonix, will add antibiotics because history of cirrhosis- may need octreotide based on findings (2) Acute blood loss anemia: Code(s): D62 - Acute posthemorrhagic anemia Status: Acute Assessment and Plan: s/p blood transfusion keep hb>7 on iv protonix (3) Liver cirrhosis secondary to BENDER: Code(s): K75.81 - Nonalcoholic steatohepatitis (BENDER); K74.60 - Unspecified cirrhosis of liver Status: Acute Assessment and Plan: patient was told that secondary to bender egd now (4) Thrombocytopenia: Code(s): D69.6 - Thrombocytopenia, unspecified Status: Acute Assessment and Plan: probably related to liver disease monitor (5) Hypertension: Code(s): I10 - Essential (primary) hypertension Status: Acute (6) Type 2 diabetes mellitus: Code(s): E11.9 - Type 2 diabetes mellitus without complications Status: Acute (7) History of gastric bypass: Code(s): Z98.84 - Bariatric surgery status Status: Acute GI Consult Note Consult date/time: 01/19/22 10:46 Reason for consult: melena, hematemesis HPI: Lynn Wylie is a 76 year old female with history of bariatric gastric surgery in 1975, recurrent GI bleeding (EGD in [address] Velez showed gastritis), colon polyp in 2018, GERD, chronic kidney disease, diabetes, and iron deficiency anemia in whom I performed EGD after she had pill esophagitis (noted ulcer in the esophagus few days after ER presentation) because odynophagia on 11/2021, she is taking ppi daily. Also has been diagnosed with BENDER cirrhosis in the past. She is here with 2 days of coffee ground emesis and also dark stools consistent of melena, feeling weak. Hb 6.3, platelets 128, inr 1.4, albumin 2.7, normal bili and transaminases, creat 1.8 (baseline 1.4). She received blood transfusion, started on iv protonix. Review of Systems Review of Systems: CONSTITUTIONAL: Denies fever, chills, or sweats. EYES: Denies visual changes, redness, or discharge. ENT: Denies rhinorrhea, congestion, sore throat, or otalgia. CARDIOVASCULAR: Denies chest pain, palpitations, or edema. RESPIRATORY: Denies cough or dyspnea. GASTROINTESTINAL: Reports abdominal pain and diffuse GENITOURINARY: Denies dysuria or hematuria. SKIN: Denies rash or itching. MUSCULOSKELETAL: Denies back pain, joint pain, or myalgia. NEUROLOGIC: Denies headache, numbness, dizziness, or weakness. PSYCHIATRIC: Denies anxiety or depression. [facility] Past Medical History Medical History (Updated 01/19/22 @ 13:27 by Maged Dugan MD) Anemia Asthma Chronic kidney disease Deep venous thrombosis Gastric ulcer Gastroesophageal mucosal tear GI bleed x3 in February 2019, May 2019, November 2019. Gout History of blood transfusion 9 units Hypertension Hypothyroidism Liver cirrhosis secondary to BENDER Melena Odynophagia Thrombocytopenia Type 2 diabetes mellitus Surgical History Surgical History History of colonoscopy with polypectomy History of esophagogastroduodenoscopy (EGD) History of gastric bypass (1974) History of hysterectomy History of repair of hiatal hernia Family History Family History Father Heart attack Mother Diabetes mellitus Social History Social History Social History: Surrogate decision maker: Yolanda Sheikh, daughter. Code status: Full code. Smoking packs per day: 0.25 Smoking cigarettes per day: 5.0 Years smoke
[2022-01-19] MEDS: SODIUM CHLORIDE 0.9% IV 250 ML 30 ML IV CONT (11:37)
[2022-01-19 12:28] LABS: Glucose Point of Care 209 mg/dl (65-105)
[2022-01-19] MEDS: MULTIVITAMINS THERAPEUTIC TAB (*BKC) 1 TABLET PO (13:05)
[2022-01-19] MEDS: FUROSEMIDE 40 MG TABLET PO (13:05)
[2022-01-19] MEDS: ATORVASTATIN 20 MG TABLET PO (13:05)
[2022-01-19] MEDS: METOPROLOL SUCCINATE EXT REL 25 MG TABCR PO (13:05)
[2022-01-19 14:50] LABS: Hematocrit 24.5 % (37.0-47.0); Hemoglobin 8.2 g/dL (12.0-15.0)
[2022-01-19] MEDS: SODIUM CHLORIDE 0.9% IV 1,000 ML 125 ML IV CONT ×2 (15:53→23:55)
[2022-01-19 16:10] LABS: Glucose Point of Care 205 mg/dl (65-105)
--- NOTE | 2022-01-19 16:21 | PM.IMPN ---
Progress Note: A&P Assessment and Plan (1) Acute GI bleeding: Code(s): K92.2 - Gastrointestinal hemorrhage, unspecified Status: Acute Assessment and Plan: Patient here with recurrent GI bleeding history of peptic ulcer disease had EGD done today showing significant gastric varices as well as portal hypertension concerning for need for tips procedure, GI is requesting transfer to tertiary care center where this can be performed. (2) Anemia: Qualifiers: Anemia type: unspecified type Qualified Code(s): D64.9 - Anemia, unspecified Code(s): D64.9 - Anemia, unspecified Status: Acute Assessment and Plan: Has received 2 units packed red blood cells, stable at 7.9, no active bleeding noted on EGD, continue to monitor hemoglobin hematocrit (3) Chronic kidney disease: Code(s): N18.9 - Chronic kidney disease, unspecified Status: Chronic Assessment and Plan: Acute kidney injury with a creatinine of 1.8 and BUN elevated to 76 secondary to acute blood loss anemia, reassess tomorrow after transfusing to see if this has improved (4) Type 2 diabetes mellitus: Code(s): E11.9 - Type 2 diabetes mellitus without complications Status: Acute Assessment and Plan: Holding patient's oral anti diabetic medications, Accu-Cheks plus sliding scale insulin ordered Plan -[facility] transfer center closed to new patients, only accepting previously established patients, no waiting list even established at this time. -[facility] transfer center has patient on tentative waiting list. Face sheet faxed over, GI fellow and hospitalist both pending acceptance. Subjective Date/time seen: 01/19/22 16:21 Interval history: Up to chair, eating her dinner. EGD done earlier today without complication. Patient denies melena, hematochezia, emesis. No overnight events noted. No chest pain or shortness of breath. No nausea, vomiting or diarrhea. No fevers or chills. Review of Systems Review of Systems: 12 point review of systems was assessed and was negative except as noted in the HPI Exam Narrative: General: No acute distress, alert and oriented per baseline HEENT: Atraumatic, normocephalic, mucous membranes moist CV: Regular rate and rhythm, S1, S2 Lungs: Clear to auscultation bilaterally, no rales or crackles noted, no wheezes, good air entry Abdomen: Soft, nontender, nondistended Extremities: Normal to inspection Skin: No rashes noted, no lesions or wounds seen Psych: Euthymic, normal affect Objective Data Vital Signs Vital Signs: Vital Signs - 24 hr 01/18/22 16:41 01/18/22 16:56 01/18/22 17:00 Temperature 97.7 F 97.6 F 97.7 F Pulse Rate 99 98 97 Respiratory Rate 24 H 23 H 20 Blood Pressure 139/64 113/51 L 108/56 L Pulse Oximetry 98 97 97 Oxygen Delivery 01/18/22 16:42 01/18/22 16:43 01/18/22 16:45 Temperature Pulse Rate 99 100 100 Respiratory Rate 24 H 23 H 23 H Blood Pressure 139/64 Pulse Oximetry 98 100 98 Oxygen Delivery 01/18/22 16:59 01/18/22 17:00 01/18/22 17:01 Temperature Pulse Rate 97 96 98 Respiratory Rate 18 21 H 25 H Blood Pressure 113/51 L 108/56 L Pulse Oximetry 98 99 99 Oxygen Delivery 01/18/22 18:00 01/18/22 19:23 01/18/22 19:00 Temperature 98 F 97.8 F Pulse Rate 98 97 97 Respiratory Rate 23 H 22 H 22 H Blood Pressure 148/69 H 116/50 L 116/50 L Pulse Oximetry 99 100 100 Oxygen Delivery 01/18/22 21:01 01/18/22 21:10 01/18/22 22:00 Temperature 98.3 F Pulse Rate 106 H 104 H 101 H Respiratory Rate 18 18 Blood Pressure 116/50 L 138/74 Pulse Oximetry 98 98 Oxygen Delivery 01/18/22 23:31 01/19/22 00:00 01/19/22 00:00 Temperature 97.8 F Pulse Rate 105 H 113 H 113 H Respiratory Rate 20 20 Blood Pressure 114/65 Pulse Oximetry 98 98 Oxygen Delivery Room Air 01/19/22 02:00 01/19/22 03:51 01/19/22 04:00 Temperature 97.7 F Pulse Rate 107 H 111 H 101 H Respiratory Rate 18 Bl
[2022-01-19] MEDS: INSULIN ASPART (*BKC) 100 UNITS/ML SUB-Q (17:12)
[2022-01-19] MEDS: FERROUS SULFATE 324 MG TABLET PO (17:12)
[2022-01-19 17:38] LABS: Hematocrit 24.9 % (37.0-47.0); Hemoglobin 7.9 g/dL (12.0-15.0)
[2022-01-19] MEDS: PANTOPRAZOLE SODIUM IV 40 MG VIAL IV PUSH (21:02)
[2022-01-19 22:06] LABS: Hematocrit 22.3 % (37.0-47.0); Hemoglobin 7.5 g/dL (12.0-15.0)
[2022-01-19 22:50] LABS: Glucose Point of Care 280 mg/dl (65-105)
[2022-01-20] VITALS (14 sets, daily range): BP systolic 103–134; BP diastolic 41–74; PULSE 63–89; RESP 14–24; TEMP 36.2–37.1; O2SAT 93–100
[2022-01-20] MEDS: LEVOTHYROXINE SODIUM 75 MCG TABLET PO (04:36)
[2022-01-20 06:19] LABS: Hematocrit 24.8 % (37.0-47.0); Mean Corpuscular HGB Conc 32.3 g/dl (32-36); Mean Corpuscular Volume 92.9 fl (80-100); Mean Platelet Volume 10.3 fl (7.4-10.4); Platelet Count Result 116 k/mm3 (150-375); Red Blood Count 2.67 M/mm3 (4.2-5.4); Red Cell Distribution Width 17.2 % (11.5-14.5)
[2022-01-20 06:53] LABS: Anion Gap 4 mmol/L (8-16); Blood Urea Nitrogen 58 mg/dL (7-17); Calcium 7.8 mg/dL (8.4-10.2); Carbon Dioxide 26 mmol/L (22-30); Chloride 109 mmol/L (98-107); Estimated CRCL calculation 30 ml/min; Estimated Glomerular Filt Rate 31; Glucose 166 mg/dL (65-110); Magnesium 1.8 mg/dL (1.6-2.3); Potassium 3.9 mmol/L (3.4-5.0); Sodium 139 mmol/L (137-145)
--- NOTE | 2022-01-20 10:27 | WPDANESPN ---
Anes - Prog Note Post-Op Date/Time: 01/20/22 10:27 Vital Signs: Last Vital Signs Temp 36.6 C 01/20/22 07:59 Pulse 75 01/20/22 08:00 Resp 24 H 01/20/22 07:59 BP 112/50 L 01/20/22 07:59 Pulse Ox 97 01/20/22 09:07 O2 Del Method Room Air 01/20/22 09:07 Pain Score (VAS): 0 I/O: Intake & Output 01/19/22 01/20/22 01/20/22 23:59 07:59 15:59 Intake Total 1820 Output Total 1300 500 Balance 520 -500 Laboratory Tests 01/20/22 05:07 01/20/22 05:07 01/18/22 01/19/22 01/19/22 13:09 12:17 14:43 WBC RBC Hgb 8.2 L Hct 24.5 L MCV MCH MCHC RDW Plt Count MPV Sodium Potassium Chloride Carbon Dioxide Anion Gap BUN Creatinine Estim Creat Clear Calc Estimated GFR Glucose POC Capillary Glucose 209 H Calcium Magnesium Blood Type B Positive Antibody Screen Negative Enhanced Crossmatch See Detail 01/19/22 01/19/22 01/19/22 15:33 17:20 21:58 WBC RBC Hgb 7.9 L 7.5 L Hct 24.9 L 22.3 L MCV MCH MCHC RDW Plt Count MPV Sodium Potassium Chloride Carbon Dioxide Anion Gap BUN Creatinine Estim Creat Clear Calc Estimated GFR Glucose POC Capillary Glucose 205 H Calcium Magnesium Blood Type Antibody Screen Enhanced Crossmatch 01/19/22 01/20/22 01/20/22 22:43 05:07 05:07 WBC 6.0 RBC 2.67 L Hgb 8.0 L Hct 24.8 L MCV 92.9 MCH 30.0 MCHC 32.3 RDW 17.2 H Plt Count 116 L MPV 10.3 Sodium 139 Potassium 3.9 Chloride 109 H Carbon Dioxide 26 Anion Gap 4 L BUN 58 H D Creatinine 1.60 H Estim Creat Clear Calc 30 Estimated GFR 31 L Glucose 166 H POC Capillary Glucose 280 H Calcium 7.8 L Magnesium 1.8 Blood Type Antibody Screen Enhanced Crossmatch Patient Feedback: Patient satisfied with anesthetic care.
--- NOTE | 2022-01-20 10:34 | PM.IMPN ---
Progress Note: A&P Assessment and Plan (1) Acute GI bleeding: Code(s): K92.2 - Gastrointestinal hemorrhage, unspecified Status: Acute Assessment and Plan: Patient here with recurrent GI bleeding history of peptic ulcer disease had EGD done today showing significant gastric varices as well as portal hypertension concerning for need for tips procedure, GI is requesting transfer to tertiary care center where this can be performed. 01/20: Awaiting bed at [facility], accepted yesterday (2) Anemia: Qualifiers: Anemia type: unspecified type Qualified Code(s): D64.9 - Anemia, unspecified Code(s): D64.9 - Anemia, unspecified Status: Acute Assessment and Plan: Has received 2 units packed red blood cells, stable at 7.9, no active bleeding noted on EGD, continue to monitor hemoglobin hematocrit 01/20: Stable, no transfusion today (3) Chronic kidney disease: Code(s): N18.9 - Chronic kidney disease, unspecified Status: Chronic Assessment and Plan: Acute kidney injury with a creatinine of 1.8 and BUN elevated to 76 secondary to acute blood loss anemia, reassess tomorrow after transfusing to see if this has improved 01/20: Creatinine down to 1.6, continue to monitor (4) Type 2 diabetes mellitus: Code(s): E11.9 - Type 2 diabetes mellitus without complications Status: Acute Assessment and Plan: Holding patient's oral anti diabetic medications, Accu-Cheks plus sliding scale insulin ordered Plan -[facility] transfer center closed to new patients, only accepting previously established patients, no waiting list even established at this time. -[facility] transfer center has patient on tentative waiting list. Face sheet faxed over, GI fellow and hospitalist both pending acceptance. Subjective Date/time seen: 01/20/22 10:34 Interval history: Patient states she feels very fatigued and weak. She continues to have blood in her stool. No overnight events noted. No chest pain or shortness of breath. No nausea, vomiting or diarrhea. No fevers or chills. Exam Narrative: General: No acute distress, alert and oriented per baseline HEENT: Atraumatic, normocephalic, mucous membranes moist CV: Regular rate and rhythm, S1, S2 Lungs: Clear to auscultation bilaterally, no rales or crackles noted, no wheezes, good air entry Abdomen: Soft, nontender, nondistended Extremities: Normal to inspection Skin: No rashes noted, no lesions or wounds seen Psych: Euthymic, normal affect Objective Data Vital Signs Vital Signs: Vital Signs - 24 hr 01/19/22 11:16 01/19/22 11:26 01/19/22 11:36 Temperature 98.1 F Pulse Rate 111 H 105 H 105 H Respiratory Rate 21 H 22 H 21 H Blood Pressure 106/83 114/63 114/32 L Pulse Oximetry 100 100 100 Oxygen Delivery Room Air Room Air Room Air 01/19/22 11:34 01/19/22 11:49 01/19/22 12:50 Temperature 98.1 F 97.1 F L 98.1 F Pulse Rate 105 H 102 H 101 H Respiratory Rate 21 H 18 16 Blood Pressure 114/32 L 145/106 H 129/61 Pulse Oximetry 100 99 99 Oxygen Delivery 01/19/22 13:43 01/19/22 12:00 01/19/22 13:32 Temperature 99.0 F 99 F Pulse Rate 101 H 101 H Respiratory Rate 20 20 Blood Pressure 108/54 L 108/54 L Pulse Oximetry 100 100 Oxygen Delivery Room Air 01/19/22 14:00 01/19/22 12:30 01/19/22 15:29 Temperature Pulse Rate 92 101 H Respiratory Rate Blood Pressure Pulse Oximetry 99 Oxygen Delivery Room Air 01/19/22 16:00 01/19/22 16:00 01/19/22 18:00 Temperature Pulse Rate 92 92 Respiratory Rate Blood Pressure Pulse Oximetry Oxygen Delivery Room Air 01/19/22 19:30 01/19/22 20:00 01/19/22 20:00 Temperature 98.7 F Pulse Rate 91 91 91 Respiratory Rate 16 16 Blood Pressure 117/53 L Pulse Oximetry 96 96 Oxygen Delivery Room Air 01/19/22 22:00 01/19/22 22:53 01/20/22 00:00 Temperature 97.8 F Pulse Rate 91 97 88 Respiratory Rate 20 18 Blood Pres
[2022-01-20 10:56] LABS: Hematocrit 23.4 % (37.0-47.0); Hemoglobin 7.5 g/dL (12.0-15.0)
[2022-01-20] MEDS: SODIUM CHLORIDE 0.9% IV 1,000 ML 125 ML IV CONT ×2 (11:06→21:28)
[2022-01-20] MEDS: MULTIVITAMINS THERAPEUTIC TAB (*BKC) 1 TABLET PO (11:12)
[2022-01-20] MEDS: PANTOPRAZOLE SODIUM IV 40 MG VIAL IV PUSH ×2 (11:12→21:34)
[2022-01-20] MEDS: FUROSEMIDE 40 MG TABLET PO (11:13)
[2022-01-20] MEDS: ATORVASTATIN 20 MG TABLET PO (11:13)
[2022-01-20] MEDS: FERROUS SULFATE 324 MG TABLET PO ×2 (11:13→17:36)
[2022-01-20] MEDS: METOPROLOL SUCCINATE EXT REL 25 MG TABCR PO (11:14)
[2022-01-20 12:09] LABS: Glucose Point of Care 237 mg/dl (65-105)
[2022-01-20] MEDS: INSULIN ASPART (*BKC) 100 UNITS/ML SUB-Q ×2 (13:17→17:35)
--- NOTE | 2022-01-20 14:27 | WPDGIPROGNO ---
Progress Note: A&P Assessment and Plan (1) Acute GI bleeding: Code(s): K92.2 - Gastrointestinal hemorrhage, unspecified Status: Acute Assessment and Plan: probably from phg, also noted bulging at gatric cardia- could be gastric varix continue with iv octreotide, also protonix and antibiotics patient to be transferred to [facility] for evaluation of possible TIPS (2) Gastric varix: Code(s): I86.4 - Gastric varices Status: Acute Assessment and Plan: medical treatment ? TIPS (3) Liver cirrhosis secondary to REA: Code(s): K75.81 - Nonalcoholic steatohepatitis (REA); K74.60 - Unspecified cirrhosis of liver Status: Acute Assessment and Plan: patient was told that rea is etiology of cirrhosis (4) Thrombocytopenia: Code(s): D69.6 - Thrombocytopenia, unspecified Status: Acute (5) Acute blood loss anemia: Code(s): D62 - Acute posthemorrhagic anemia Status: Acute Assessment and Plan: s/p blood transfusion (6) Type 2 diabetes mellitus: Code(s): E11.9 - Type 2 diabetes mellitus without complications Status: Acute Subjective Date/time seen: 01/20/22 14:27 Interval history: egd yesterday with PHG and gastric varix- no active bleeding. Denies any more n/v, she had melena. Overall better and hemodynamically stable Review of Systems Review of Systems: 12 point review of systems was assessed and was negative except as noted in the HPI Exam Narrative: GENERAL: Well-appearing, well-nourished, and in no acute distress. HEAD: Normocephalic, atraumatic. EYES: PERRLA and EOMI. ENT: Nares clear, no rhinorrhea or epistaxis. Mucous membranes moist. NECK: Supple. No masses. No JVD CHEST: Clear to auscultation. No respiratory distress. No wheezes rales or rhonchi HEART: Regular rate and rhythm. No murmur heard. Normal peripheral pulses. ABDOMEN: no pain, no rebound or guarding, soft, nondistended. EXTREMITIES: Normal range of motion. No edema. SKIN: Warm, dry, no rash. NEURO: No focal deficits. Alert and oriented x3. PSYCH: Normal mood and affect. Objective Data Vital Signs Vital Signs: Vital Signs - 24 hr 01/19/22 15:29 01/19/22 16:00 01/19/22 16:00 Temperature Pulse Rate 92 Respiratory Rate Blood Pressure Pulse Oximetry 99 Oxygen Delivery Room Air Room Air 01/19/22 18:00 01/19/22 19:30 01/19/22 20:00 Temperature 98.7 F Pulse Rate 92 91 91 Respiratory Rate 16 16 Blood Pressure 117/53 L Pulse Oximetry 96 96 Oxygen Delivery Room Air 01/19/22 20:00 01/19/22 22:00 01/19/22 22:53 Temperature 97.8 F Pulse Rate 91 91 97 Respiratory Rate 20 Blood Pressure 149/55 H Pulse Oximetry 96 Oxygen Delivery 01/20/22 00:00 01/20/22 00:00 01/20/22 02:00 Temperature Pulse Rate 88 87 82 Respiratory Rate 18 Blood Pressure Pulse Oximetry Oxygen Delivery Room Air 01/20/22 03:37 01/20/22 04:00 01/20/22 04:48 Temperature 97.3 F L Pulse Rate 83 83 84 Respiratory Rate 14 Blood Pressure 127/41 L Pulse Oximetry 93 Oxygen Delivery Room Air 01/20/22 06:00 01/20/22 07:59 01/20/22 08:00 Temperature 97.9 F Pulse Rate 89 88 75 Respiratory Rate 24 H Blood Pressure 112/50 L Pulse Oximetry 94 Oxygen Delivery 01/20/22 09:07 01/20/22 11:14 01/20/22 08:00 Temperature Pulse Rate 69 Respiratory Rate Blood Pressure Pulse Oximetry 97 Oxygen Delivery Room Air Room Air 01/20/22 12:00 Temperature 97.1 F L Pulse Rate 69 Respiratory Rate 20 Blood Pressure 103/74 Pulse Oximetry 98 Oxygen Delivery Intake/Output Intake/Output: Intake & Output 01/17/22 01/18/22 01/19/22 01/20/22 23:59 23:59 23:59 23:59 Intake Total 700 3670 1940 Output Total 1300 500 Balance 700 2370 1440 Meds/Results Medications: Active Medications Generic Name Dose Route Start Last Admin Trade Name Freq PRN Reason Stop Dose Admin Atorva
[2022-01-20 17:17] LABS: Hematocrit 26.7 % (37.0-47.0); Hemoglobin 8.6 g/dL (12.0-15.0)
[2022-01-20 17:23] LABS: Glucose Point of Care 202 mg/dl (65-105)
[2022-01-21] VITALS (10 sets, daily range): BP systolic 112–138; BP diastolic 45–64; PULSE 58–84; RESP 14–18; TEMP 36.2–36.8; O2SAT 95–100
[2022-01-21] MEDS: SODIUM CHLORIDE 0.9% IV 1,000 ML 125 ML IV CONT (05:52)
[2022-01-21] MEDS: LEVOTHYROXINE SODIUM 75 MCG TABLET PO (05:52)
[2022-01-21 08:19] LABS: Glucose Point of Care 236 mg/dl (65-105)
[2022-01-21] MEDS: INSULIN ASPART (*BKC) 100 UNITS/ML SUB-Q ×3 (08:41→17:41)
[2022-01-21] MEDS: METOPROLOL SUCCINATE EXT REL 25 MG TABCR PO (08:47)
[2022-01-21] MEDS: FUROSEMIDE 40 MG TABLET PO (08:47)
[2022-01-21] MEDS: FERROUS SULFATE 324 MG TABLET PO ×2 (08:47→17:42)
[2022-01-21] MEDS: MULTIVITAMINS THERAPEUTIC TAB (*BKC) 1 TABLET PO (08:47)
[2022-01-21] MEDS: PANTOPRAZOLE SODIUM IV 40 MG VIAL IV PUSH ×2 (08:48→22:13)
[2022-01-21] MEDS: ATORVASTATIN 20 MG TABLET PO (08:48)
[2022-01-21 12:04] LABS: Glucose Point of Care 251 mg/dl (65-105)
--- NOTE | 2022-01-21 13:24 | WPDGIPROGNO ---
Progress Note: A&P Assessment and Plan (1) Acute GI bleeding: Code(s): K92.2 - Gastrointestinal hemorrhage, unspecified Status: Acute Assessment and Plan: from phg, also noted bulging at gastric cardia probably highly consistent with gastric varix continue with iv octreotide, also protonix and antibiotics no more signs of ongoing bleeding, awaiting bed at [facility] for evaluation of possible TIPS (2) Gastric varix: Code(s): I86.4 - Gastric varices Status: Acute Assessment and Plan: medical treatment ? TIPS (3) Liver cirrhosis secondary to REA: Code(s): K75.81 - Nonalcoholic steatohepatitis (REA); K74.60 - Unspecified cirrhosis of liver Status: Acute Assessment and Plan: patient was told that rea is etiology of cirrhosis (4) Thrombocytopenia: Code(s): D69.6 - Thrombocytopenia, unspecified Status: Acute (5) Acute blood loss anemia: Code(s): D62 - Acute posthemorrhagic anemia Status: Acute Assessment and Plan: s/p blood transfusion, hb stable mid 8's (6) Type 2 diabetes mellitus: Code(s): E11.9 - Type 2 diabetes mellitus without complications Status: Acute Subjective Date/time seen: 01/21/22 13:24 Interval history: tolerating diet, comfortable. 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 HEAD: Normocephalic, atraumatic. EYES: PERRLA and EOMI. ENT: Nares clear, no rhinorrhea or epistaxis. Mucous membranes moist. NECK: Supple. No masses. No JVD CHEST: Clear to auscultation. No respiratory distress. No wheezes rales or rhonchi HEART: Regular rate and rhythm. No murmur heard. Normal peripheral pulses. ABDOMEN: no pain, no rebound or guarding, soft, nondistended. EXTREMITIES: Normal range of motion. No edema. SKIN: Warm, dry, no rash. NEURO: No focal deficits. Alert and oriented x3. PSYCH: Normal mood and affect. Objective Data Vital Signs Vital Signs: Vital Signs - 24 hr 01/20/22 16:00 01/20/22 19:54 01/20/22 20:00 Temperature 98.0 F 98.6 F Pulse Rate 63 66 Respiratory Rate 20 24 H Blood Pressure 126/46 L 119/50 L Pulse Oximetry 99 100 Oxygen Delivery Room Air 01/20/22 23:06 01/21/22 00:00 01/21/22 04:00 Temperature 98.7 F 98.2 F 97.4 F L Pulse Rate 78 84 78 Respiratory Rate 16 16 16 Blood Pressure 134/63 117/50 L 112/45 L Pulse Oximetry 99 99 95 Oxygen Delivery 01/21/22 08:47 01/21/22 08:00 01/21/22 11:27 Temperature Pulse Rate 75 69 Respiratory Rate Blood Pressure Pulse Oximetry 97 Oxygen Delivery Room Air Intake/Output Intake/Output: Intake & Output 01/18/22 01/19/22 01/20/22 01/21/22 23:59 23:59 23:59 23:59 Intake Total 700 3670 3630 1740 Output Total 1300 1200 Balance 700 2370 2430 1740 Meds/Results Medications: Active Medications Generic Name Dose Route Start Last Admin Trade Name Freq PRN Reason Stop Dose Admin Atorvastatin Calcium 20 mg 01/19/22 09:00 01/21/22 08:48 Atorvastatin 20 Mg Tablet PO 20 mg DAILY RADHA Administration Dextrose 12.5 gm 01/18/22 18:24 Dextrose 50% 25 Gm/50 Ml Syringe IV PUSH PRN PRN Hypoglycemia Protocol Ferrous Sulfate 324 mg 01/19/22 17:00 01/21/22 08:47 Ferrous Sulfate 324 Mg Tablet PO 324 mg BIDWM RADHA Administration Furosemide 40 mg 01/19/22 09:00 01/21/22 08:47 Furosemide 40 Mg Tablet PO 40 mg QAM RDAHA Administration Glucagon 1 mg 01/18/22 18:24 Glucagon For Inj 1 Mg Vial IM PRN PRN Hypoglycemia Protocol Glucose 15 gm 01/18/22 18:24 Glucose Oral Gel 15 Gm Of Glucse In 37.5 Gm Tube PO PRN PRN Hypoglycemia Protocol Dextrose 1,000 mls @ 100 mls/hr 01/18/22 18:24 Dextrose 5
[2022-01-21 17:26] LABS: Glucose Point of Care 231 mg/dl (65-105)
--- NOTE | 2022-01-21 18:40 | PM.IMPN ---
Progress Note: A&P Assessment and Plan (1) Acute GI bleeding: Code(s): K92.2 - Gastrointestinal hemorrhage, unspecified Status: Acute Assessment and Plan: Patient here with recurrent GI bleeding history of peptic ulcer disease had EGD done today showing significant gastric varices as well as portal hypertension concerning for need for tips procedure, GI is requesting transfer to [facility] where this [facility] be performed. 01/20: Awaiting bed at [facility], accepted yesterday 01/21: Unchanged (2) Anemia: Qualifiers: Anemia type: unspecified type Qualified Code(s): D64.9 - Anemia, unspecified Code(s): D64.9 - Anemia, unspecified Status: Acute Assessment and Plan: Has received 2 units packed red blood cells, stable at 7.9, no active bleeding noted on EGD, continue to monitor hemoglobin hematocrit 01/20: Stable, no transfusion today 01/21: Labs pending (3) Chronic kidney disease: Code(s): N18.9 - Chronic kidney disease, unspecified Status: Chronic Assessment and Plan: Acute kidney injury with a creatinine of 1.8 and BUN elevated to 76 secondary to acute blood loss anemia, reassess tomorrow after transfusing to see if this has improved 01/20: Creatinine down to 1.6, continue to monitor (4) Type 2 diabetes mellitus: Code(s): E11.9 - Type 2 diabetes mellitus without complications Status: Acute Assessment and Plan: Holding patient's oral anti diabetic medications, Accu-Cheks plus sliding scale insulin ordered Started Lantus 10 units due to consistently high glucoses between 200-250 Plan -[facility] transfer center closed to new patients, only accepting previously established patients, no waiting list even established at this time. -[facility] transfer center has patient on waiting list. Face sheet faxed over, GI fellow and hospitalist both accepted. Subjective Date/time seen: 01/21/22 18:40 Interval history: No overnight events noted. No chest pain or shortness of breath. No nausea, vomiting or diarrhea. No fevers or chills. Review of Systems Review of Systems: 12 point review of systems was assessed and was negative except as noted in the HPI Exam Narrative: General: No acute distress, alert and oriented per baseline HEENT: Atraumatic, normocephalic, mucous membranes moist CV: Regular rate and rhythm, S1, S2 Lungs: Clear to auscultation bilaterally, no rales or crackles noted, no wheezes, good air entry Abdomen: Soft, nontender, nondistended Extremities: Normal to inspection Skin: No rashes noted, no lesions or wounds seen Psych: Euthymic, normal affect Objective Data Vital Signs Vital Signs: Vital Signs - 24 hr 01/20/22 19:54 01/20/22 20:00 01/20/22 23:06 Temperature 98.6 F 98.7 F Pulse Rate 66 78 Respiratory Rate 24 H 16 Blood Pressure 119/50 L 134/63 Pulse Oximetry 100 99 Oxygen Delivery Room Air 01/21/22 00:00 01/21/22 04:00 01/21/22 08:47 Temperature 98.2 F 97.4 F L Pulse Rate 84 78 75 Respiratory Rate 16 16 Blood Pressure 117/50 L 112/45 L Pulse Oximetry 99 95 Oxygen Delivery 01/21/22 08:00 01/21/22 11:27 01/21/22 12:00 Temperature Pulse Rate 69 67 Respiratory Rate Blood Pressure Pulse Oximetry 97 Oxygen Delivery Room Air 01/21/22 14:00 01/21/22 16:00 Temperature 97.8 F Pulse Rate 61 63 Respiratory Rate 14 Blood Pressure 138/64 Pulse Oximetry 100 Oxygen Delivery Intake/Output Intake/Output: Intake & Output 01/18/22 01/19/22 01/20/22 01/21/22 23:59 23:59 23:59 23:59 Intake Total 700 3670 3630 2620 Output Total 1300 1200 800 Balance 700 2370 2430 1820 Meds/Results Medications: Active Medications Generic Name Dose Route Start Last Admin Trade Name Curt PRN Reason Stop Dose Admin Atorvastatin Calcium 20 mg 01/19/22 09:00 01/21/22 08:48 Atorvastatin 20 Mg Tablet PO 20 mg DAILY RADHA Administration Dextrose 12.5 g
[2022-01-21 19:28] LABS: Hematocrit 25.5 % (37.0-47.0); Hemoglobin 8.1 g/dL (12.0-15.0)
[2022-01-21 19:46] LABS: Hemoglobin A1C 6.8 % (<5.7)
[2022-01-21 21:53] LABS: Glucose Point of Care 248 mg/dl (65-105)
[2022-01-21] MEDS: INSULIN GLARGINE (*BKC) 100 UNITS/ML 10 UNITS SUB-Q (22:12)
[2022-01-22] VITALS (9 sets, daily range): BP systolic 112–115; BP diastolic 50–59; PULSE 52–84; RESP 16–17; TEMP 35.8–36.8; O2SAT 96–100
[2022-01-22] MEDS: LEVOTHYROXINE SODIUM 75 MCG TABLET PO (05:55)
[2022-01-22 06:19] LABS: Hematocrit 22.3 % (37.0-47.0); Hemoglobin 7.2 g/dL (12.0-15.0); Immature Platelet Fraction Pct 2.4 % (0.9-11.2); Mean Corpuscular HGB Conc 32.3 g/dl (32-36); Mean Corpuscular Hemoglobin 30.1 pg (26-34); Mean Corpuscular Volume 93.3 fl (80-100); Mean Platelet Volume 10.2 fl (7.4-10.4); Platelet Count Result 115 k/mm3 (150-375); Red Blood Count 2.39 M/mm3 (4.2-5.4); Red Cell Distribution Width 17.5 % (11.5-14.5); White Blood Count 3.6 K/mm3 (4.5-10.0)
[2022-01-22 06:37] LABS: Alanine Aminotransferase 26 U/L (6-35); Albumin Level 2.6 g/dL (3.5-5.1); Alkaline Phosphatase 72 U/L (38-126); Anion Gap 5 mmol/L (8-16); Aspartate Amino Transferase 38 U/L (14-36); Bilirubin,Total 0.5 mg/dL (0.2-1.3); Blood Urea Nitrogen 32 mg/dL (7-17); Calcium 7.4 mg/dL (8.4-10.2); Carbon Dioxide 25 mmol/L (22-30); Chloride 108 mmol/L (98-107); Estimated CRCL calculation 32 ml/min; Estimated Glomerular Filt Rate 34; Glucose 173 mg/dL (65-110); Potassium 3.7 mmol/L (3.4-5.0); Sodium 138 mmol/L (137-145)
--- NOTE | 2022-01-22 08:25 | PM.IMPN ---
Progress Note: A&P Assessment and Plan (1) Acute GI bleeding: Code(s): K92.2 - Gastrointestinal hemorrhage, unspecified Status: Acute Assessment and Plan: Patient here with recurrent GI bleeding history of peptic ulcer disease had EGD done today showing significant gastric varices as well as portal hypertension concerning for need for tips procedure, GI is requesting transfer to tertiary care center where this can be performed. PPI BID. Octreotide gtt. 01/19: Octreotide gtt d/c 01/20: Awaiting bed at [facility], accepted yesterday 01/21: Unchanged, hgb 8 01/22: Unchanged, hgb 7.2, due to slight drop an increase in symptoms, will restart octreotide drip (2) Anemia: Qualifiers: Anemia type: unspecified type Qualified Code(s): D64.9 - Anemia, unspecified Code(s): D64.9 - Anemia, unspecified Status: Acute Assessment and Plan: Has received 2 units packed red blood cells, stable at 7.9, no active bleeding noted on EGD, continue to monitor hemoglobin hematocrit 01/20: Stable, no transfusion today 01/21: Labs pending 01/22: Hgb 7.2, recheck later today, restarted octreotide drip (3) Chronic kidney disease: Code(s): N18.9 - Chronic kidney disease, unspecified Status: Chronic Assessment and Plan: Acute kidney injury with a creatinine of 1.8 and BUN elevated to 76 secondary to acute blood loss anemia, reassess tomorrow after transfusing to see if this has improved 01/20: Creatinine down to 1.6, improved with transfusion, continue to monitor 01/22: Creat 1.5 (4) Type 2 diabetes mellitus: Code(s): E11.9 - Type 2 diabetes mellitus without complications Status: Acute Assessment and Plan: Holding patient's oral anti diabetic medications, Accu-Cheks plus sliding scale insulin ordered 01/21: Started Lantus 10 units QHS due to consistently high glucoses between 200-250 01/22: FBG 173, monitor BG today after lantus given last night Plan -[facility] transfer center closed to new patients, only accepting previously established patients, no waiting list even established at this time. -[facility] transfer center has patient on waiting list. Face sheet faxed over, GI fellow and hospitalist both accepted. Subjective Date/time seen: 01/22/22 08:25 Interval history: Patient feels very fatigued, lightheaded little short of breath. No overnight events noted. No nausea, vomiting or diarrhea. No fevers or chills. She had a formed bowel movement today that was very dark, no bright red blood noted. Review of Systems Review of Systems: 12 point review of systems was assessed and was negative except as noted in the HPI Exam Narrative: General: No acute distress, alert and oriented per baseline HEENT: Atraumatic, normocephalic, mucous membranes moist CV: Regular rate and rhythm, S1, S2 Lungs: Clear to auscultation bilaterally, no rales or crackles noted, no wheezes, good air entry Abdomen: Soft, nontender, nondistended Extremities: Normal to inspection Skin: No rashes noted, no lesions or wounds seen Psych: Euthymic, normal affect Objective Data Vital Signs Vital Signs: Vital Signs - 24 hr 01/21/22 08:47 01/21/22 11:27 01/21/22 12:00 Temperature Pulse Rate 75 67 Respiratory Rate Blood Pressure Pulse Oximetry 97 Oxygen Delivery Room Air 01/21/22 14:00 01/21/22 16:00 01/21/22 22:00 Temperature 97.8 F 97.1 F L Pulse Rate 61 63 58 L Respiratory Rate 14 18 Blood Pressure 138/64 127/51 L Pulse Oximetry 100 100 Oxygen Delivery 01/21/22 20:00 01/22/22 04:00 01/22/22 06:00 Temperature 96.5 F L Pulse Rate 72 84 70 Respiratory Rate 16 Blood Pressure 112/50 L Pulse Oximetry 96 Oxygen Delivery Intake/Output Intake/Output: Intake & Output 01/19/22 01/20/22 01/21/22 01/22/22 23:59 23:59 23:59 23:59 Intake Total 3670 3630 2620 Output Total 1300 1200 800 Balance 2370 2430 1820 Meds/Results Medications: Acti
[2022-01-22 09:06] LABS: Glucose Point of Care 176 mg/dl (65-105)
[2022-01-22] MEDS: FUROSEMIDE 40 MG TABLET PO (09:16)
[2022-01-22] MEDS: FERROUS SULFATE 324 MG TABLET PO ×2 (09:16→17:29)
[2022-01-22] MEDS: ATORVASTATIN 20 MG TABLET PO (09:16)
[2022-01-22] MEDS: METOPROLOL SUCCINATE EXT REL 25 MG TABCR PO (09:16)
[2022-01-22] MEDS: PANTOPRAZOLE SODIUM IV 40 MG VIAL IV PUSH ×2 (09:16→20:44)
[2022-01-22] MEDS: MULTIVITAMINS THERAPEUTIC TAB (*BKC) 1 TABLET PO (09:17)
[2022-01-22 10:47] LABS: Hemoglobin 7.9 g/dL (12.0-15.0)
[2022-01-22] MEDS: INSULIN ASPART (*BKC) 100 UNITS/ML SUB-Q (11:51)
[2022-01-22 12:59] LABS: Hematocrit 25.3 % (37.0-47.0)
[2022-01-22 13:16] LABS: Glucose Point of Care 262 mg/dl (65-105)
[2022-01-22 17:30] LABS: Glucose Point of Care 184 mg/dl (65-105)
[2022-01-22] MEDS: INSULIN GLARGINE (*BKC) 100 UNITS/ML 10 UNITS SUB-Q (20:44)
[2022-01-22 21:22] LABS: Glucose Point of Care 288 mg/dl (65-105)
[2022-01-23] VITALS (11 sets, daily range): BP systolic 118–136; BP diastolic 46–62; PULSE 56–73; RESP 17–22; TEMP 36.1–36.6; O2SAT 97–100
[2022-01-23] MEDS: LEVOTHYROXINE SODIUM 75 MCG TABLET PO (05:23)
[2022-01-23 06:59] LABS: Hematocrit 23.5 % (37.0-47.0); Hemoglobin 7.9 g/dL (12.0-15.0); Mean Corpuscular HGB Conc 33.6 g/dl (32-36); Mean Corpuscular Hemoglobin 30.7 pg (26-34); Mean Corpuscular Volume 91.4 fl (80-100); Platelet Count Result 113 k/mm3 (150-375); Red Blood Count 2.57 M/mm3 (4.2-5.4); Red Cell Distribution Width 17.9 % (11.5-14.5); White Blood Count 3.9 K/mm3 (4.5-10.0)
[2022-01-23 07:08] LABS: Alanine Aminotransferase 27 U/L (6-35); Albumin Level 2.8 g/dL (3.5-5.1); Alkaline Phosphatase 75 U/L (38-126); Anion Gap 2 mmol/L (8-16); Aspartate Amino Transferase 39 U/L (14-36); Bilirubin,Total 0.5 mg/dL (0.2-1.3); Blood Urea Nitrogen 24 mg/dL (7-17); Calcium 7.9 mg/dL (8.4-10.2); Carbon Dioxide 27 mmol/L (22-30); Chloride 107 mmol/L (98-107); Estimated CRCL calculation 34 ml/min; Estimated Glomerular Filt Rate 36; Glucose 175 mg/dL (65-110); Potassium 3.9 mmol/L (3.4-5.0); Sodium 136 mmol/L (137-145)
--- NOTE | 2022-01-23 07:53 | PM.IMPN ---
Progress Note: A&P Assessment and Plan (1) Acute GI bleeding: Code(s): K92.2 - Gastrointestinal hemorrhage, unspecified Status: Acute Assessment and Plan: Patient here with recurrent GI bleeding history of peptic ulcer disease had EGD done today showing significant gastric varices as well as portal hypertension concerning for need for tips procedure, GI is requesting transfer to tertiary care center where this can be performed. PPI BID. Octreotide gtt. 01/19: Octreotide gtt d/c 01/20: Awaiting bed at [facility], accepted yesterday 01/21: Unchanged, hgb 8 01/22: Unchanged, hgb 7.2, due to slight drop an increase in symptoms, will restart octreotide drip 01/23: Stable at 7.9, back on octreotide gtt (2) Anemia: Qualifiers: Anemia type: unspecified type Qualified Code(s): D64.9 - Anemia, unspecified Code(s): D64.9 - Anemia, unspecified Status: Acute Assessment and Plan: Has received 2 units packed red blood cells, stable at 7.9, no active bleeding noted on EGD, continue to monitor hemoglobin hematocrit 01/20: Stable, no transfusion today 01/21: Labs pending 01/22: Hgb 7.2, recheck later today, restarted octreotide drip see above (3) Chronic kidney disease: Code(s): N18.9 - Chronic kidney disease, unspecified Status: Chronic Assessment and Plan: Acute kidney injury with a creatinine of 1.8 and BUN elevated to 76 secondary to acute blood loss anemia, reassess tomorrow after transfusing to see if this has improved 01/20: Creatinine down to 1.6, improved with transfusion, continue to monitor 01/22: Creat 1.5 01/23: Creat 1.4 (4) Type 2 diabetes mellitus: Code(s): E11.9 - Type 2 diabetes mellitus without complications Status: Acute Assessment and Plan: Holding patient's oral anti diabetic medications, Accu-Cheks plus sliding scale insulin ordered, a1c 6.8 01/21/22, on glipizide + metformin outpatient, being held for now 01/21: Started Lantus 10 units QHS due to consistently high glucoses between 200-250 01/22: FBG 173, monitor BG today after lantus given last night 01/23: FBG 175, increase lantus to 12 units tonight Plan -[facility] transfer center closed to new patients, only accepting previously established patients, no waiting list even established at this time. -[facility] transfer center has patient on waiting list. Face sheet faxed over, GI fellow and hospitalist both accepted. Subjective Date/time seen: 01/23/22 07:53 Interval history: Patient states she feels fatigued and exhausted today. She is very frustrated that she is still waiting to be transferred. She continues to have melanotic stool. She states the bloating sensation she had with the octreotide drip was off has resolved since restarting the drip. No overnight events noted. No chest pain or shortness of breath. No nausea, vomiting or diarrhea. No fevers or chills. Review of Systems Review of Systems: 12 point review of systems was assessed and was negative except as noted in the HPI Exam Narrative: General: No acute distress, alert and oriented per baseline HEENT: Atraumatic, normocephalic, mucous membranes moist CV: Regular rate and rhythm, S1, S2 Lungs: Clear to auscultation bilaterally, no rales or crackles noted, no wheezes, good air entry Abdomen: Soft, nontender, nondistended Extremities: Normal to inspection Skin: No rashes noted, no lesions or wounds seen Psych: Euthymic, normal affect Objective Data Vital Signs Vital Signs: Vital Signs - 24 hr 01/22/22 09:16 01/22/22 08:00 01/22/22 08:00 Temperature Pulse Rate 61 63 Respiratory Rate Blood Pressure Pulse Oximetry Oxygen Delivery Room Air 01/22/22 12:00 01/22/22 14:00 01/22/22 16:00 Temperature 97.4 F L Pulse Rate 60 62 72 Respiratory Rate 16 Blood Pressure 114/59 L Pulse Oximetry 100 Oxygen Delivery 01/22/22 20:00 01/22/22 22:00 01/23/22 00:00 Temperature 98.3 F Pulse Ra
[2022-01-23 08:06] LABS: Glucose Point of Care 179 mg/dl (65-105)
[2022-01-23] MEDS: METOPROLOL SUCCINATE EXT REL 25 MG TABCR PO (09:36)
[2022-01-23] MEDS: MULTIVITAMINS THERAPEUTIC TAB (*BKC) 1 TABLET PO (09:36)
[2022-01-23] MEDS: FERROUS SULFATE 324 MG TABLET PO ×2 (09:37→17:05)
[2022-01-23] MEDS: FUROSEMIDE 40 MG TABLET PO (09:37)
[2022-01-23] MEDS: PANTOPRAZOLE SODIUM IV 40 MG VIAL IV PUSH ×2 (09:37→22:28)
[2022-01-23] MEDS: ATORVASTATIN 20 MG TABLET PO (09:37)
[2022-01-23 11:54] LABS: Glucose Point of Care 281 mg/dl (65-105)
[2022-01-23] MEDS: INSULIN ASPART (*BKC) 100 UNITS/ML SUB-Q (12:30)
[2022-01-23 17:19] LABS: Glucose Point of Care 191 mg/dl (65-105)
[2022-01-23] MEDS: INSULIN GLARGINE (*BKC) 100 UNITS/ML 12 UNITS SUB-Q (22:25)
[2022-01-24] VITALS (9 sets, daily range): BP systolic 106–139; BP diastolic 58–65; PULSE 56–77; RESP 16–18; TEMP 36.2–36.7; O2SAT 96–100
[2022-01-24 00:11] LABS: Glucose Point of Care 200 mg/dl (65-105)
[2022-01-24] MEDS: LEVOTHYROXINE SODIUM 75 MCG TABLET PO (05:44)
[2022-01-24 06:45] LABS: Hematocrit 24.8 % (37.0-47.0); Hemoglobin 7.7 g/dL (12.0-15.0); Mean Corpuscular Volume 96.5 fl (80-100); Mean Platelet Volume 9.8 fl (7.4-10.4); Platelet Count Result 113 k/mm3 (150-375); Red Blood Count 2.57 M/mm3 (4.2-5.4); Red Cell Distribution Width 18.1 % (11.5-14.5); White Blood Count 3.3 K/mm3 (4.5-10.0)
[2022-01-24 06:58] LABS: Alanine Aminotransferase 26 U/L (6-35); Albumin Level 2.7 g/dL (3.5-5.1); Alkaline Phosphatase 78 U/L (38-126); Anion Gap 4 mmol/L (8-16); Aspartate Amino Transferase 37 U/L (14-36); Bilirubin,Total 0.6 mg/dL (0.2-1.3); Blood Urea Nitrogen 19 mg/dL (7-17); Calcium 8.1 mg/dL (8.4-10.2); Carbon Dioxide 28 mmol/L (22-30); Chloride 104 mmol/L (98-107); Estimated CRCL calculation 37 ml/min; Estimated Glomerular Filt Rate 40; Glucose 178 mg/dL (65-110); Potassium 3.8 mmol/L (3.4-5.0); Sodium 136 mmol/L (137-145)
[2022-01-24 08:11] LABS: Glucose Point of Care 197 mg/dl (65-105)
[2022-01-24] MEDS: PANTOPRAZOLE SODIUM IV 40 MG VIAL IV PUSH ×2 (08:57→20:54)
[2022-01-24] MEDS: MULTIVITAMINS THERAPEUTIC TAB (*BKC) 1 TABLET PO (08:58)
[2022-01-24] MEDS: METOPROLOL SUCCINATE EXT REL 25 MG TABCR PO (08:58)
[2022-01-24] MEDS: FERROUS SULFATE 324 MG TABLET PO ×2 (08:58→17:07)
[2022-01-24] MEDS: FUROSEMIDE 40 MG TABLET PO (08:59)
[2022-01-24] MEDS: ATORVASTATIN 20 MG TABLET PO (08:59)
[2022-01-24 11:45] LABS: Glucose Point of Care 247 mg/dl (65-105)
[2022-01-24] MEDS: INSULIN ASPART (*BKC) 100 UNITS/ML SUB-Q (12:00)
--- NOTE | 2022-01-24 13:25 | PM.IMPN ---
Progress Note: A&P Assessment and Plan (1) Acute GI bleeding: Code(s): K92.2 - Gastrointestinal hemorrhage, unspecified Status: Acute Assessment and Plan: Patient here with recurrent GI bleeding history of peptic ulcer disease had EGD done today showing significant gastric varices as well as portal hypertension concerning for need for tips procedure, GI is requesting transfer to tertiary care center where this can be performed. PPI BID. Octreotide gtt. 01/19: Octreotide gtt d/c 01/20: Awaiting bed at [facility], accepted yesterday 01/21: Unchanged, hgb 8 01/22: Unchanged, hgb 7.2, due to slight drop an increase in symptoms, will restart octreotide drip 01/23: Stable at 7.9, back on octreotide gtt 01/24 - S hemoglobin stable at 7.7. Remains on octreotide drip (2) Anemia: Qualifiers: Anemia type: unspecified type Qualified Code(s): D64.9 - Anemia, unspecified Code(s): D64.9 - Anemia, unspecified Status: Acute Assessment and Plan: transfuse as needed see above (3) Chronic kidney disease: Code(s): N18.9 - Chronic kidney disease, unspecified Status: Chronic Assessment and Plan: monitor (4) Type 2 diabetes mellitus: Code(s): E11.9 - Type 2 diabetes mellitus without complications Status: Acute Assessment and Plan: monitor blood sugar Plan -[facility] transfer center closed to new patients, only accepting previously established patients, no waiting list even established at this time. -[facility] transfer center has patient on waiting list. Face sheet faxed over, GI fellow and hospitalist both accepted. Subjective Date/time seen: 01/24/22 13:25 doing okay, no additional bleeding Exam Narrative: General: No acute distress, alert and oriented per baseline HEENT: Atraumatic, normocephalic, mucous membranes moist CV: Regular rate and rhythm, S1, S2 Lungs: Clear to auscultation bilaterally, no rales or crackles noted, no wheezes, good air entry Abdomen: Soft, nontender, nondistended Extremities: Normal to inspection Skin: No rashes noted, no lesions or wounds seen Psych: Euthymic, normal affect Objective Data Vital Signs Vital Signs: Vital Signs - 24 hr 01/23/22 14:00 01/23/22 16:00 01/23/22 22:00 Temperature 96.9 F L 97.9 F Pulse Rate 56 L 57 L 68 Respiratory Rate 22 H 17 Blood Pressure 120/46 L 136/62 Pulse Oximetry 100 98 Oxygen Delivery 01/23/22 22:22 01/23/22 20:00 01/23/22 20:00 Temperature Pulse Rate 59 L 68 Respiratory Rate 17 Blood Pressure Pulse Oximetry 97 97 Oxygen Delivery Room Air Room Air 01/24/22 00:00 01/24/22 05:47 01/24/22 08:58 Temperature 98.0 F Pulse Rate 77 63 62 Respiratory Rate 18 Blood Pressure 106/58 L Pulse Oximetry 96 Oxygen Delivery 01/24/22 08:00 01/24/22 08:00 Temperature Pulse Rate 72 Respiratory Rate Blood Pressure Pulse Oximetry Oxygen Delivery Room Air Intake/Output Intake/Output: Intake & Output 01/21/22 01/22/22 01/23/22 01/24/22 23:59 23:59 23:59 23:59 Intake Total 2620 1460 1850 710 Output Total 800 Balance 1820 1460 1850 710 Meds/Results Medications: Active Medications Generic Name Dose Route Start Last Admin Trade Name Freq PRN Reason Stop Dose Admin Atorvastatin Calcium 20 mg 01/19/22 09:00 01/24/22 08:59 Atorvastatin 20 Mg Tablet PO 20 mg DAILY RADHA Administration Dextrose 12.5 gm 01/18/22 18:24 Dextrose 50% 25 Gm/50 Ml Syringe IV PUSH PRN PRN Hypoglycemia Protocol Ferrous Sulfate 324 mg 01/19/22 17:00 01/24/22 08:58 Ferrous Sulfate 324 Mg Tablet PO 324 mg BIDWM RADHA Administration Furosemide 40 mg 01/19/22 09:00 01/24/22 08:59 Furosemide 40 Mg Tablet PO 40 mg QAM RADHA Administration Glucagon 1 mg 01/18/22 18:24 Glucagon For Inj 1 Mg Vial IM PRN PRN Hypoglycemia Protocol Glucose 15 gm 01/18/22 18:24 Glucose
[2022-01-24 16:45] LABS: Glucose Point of Care 164 mg/dl (65-105)
[2022-01-24] MEDS: INSULIN GLARGINE (*BKC) 100 UNITS/ML 12 UNITS SUB-Q (20:57)
[2022-01-24 21:37] LABS: Glucose Point of Care 216 mg/dl (65-105)
[2022-01-25] VITALS (11 sets, daily range): BP systolic 125–136; BP diastolic 57–67; PULSE 55–72; RESP 16–18; TEMP 36.2–36.7; O2SAT 96–98
[2022-01-25] MEDS: LEVOTHYROXINE SODIUM 75 MCG TABLET PO (05:56)
[2022-01-25 06:36] LABS: Hematocrit 23.7 % (37.0-47.0); Hemoglobin 7.6 g/dL (12.0-15.0); Mean Corpuscular HGB Conc 32.1 g/dl (32-36); Mean Corpuscular Hemoglobin 29.7 pg (26-34); Mean Corpuscular Volume 92.6 fl (80-100); Mean Platelet Volume 9.3 fl (7.4-10.4); Platelet Count Result 110 k/mm3 (150-375); Red Blood Count 2.56 M/mm3 (4.2-5.4); White Blood Count 3.4 K/mm3 (4.5-10.0)
[2022-01-25 06:52] LABS: Alanine Aminotransferase 25 U/L (6-35); Albumin Level 2.9 g/dL (3.5-5.1); Alkaline Phosphatase 81 U/L (38-126); Anion Gap 1 mmol/L (8-16); Aspartate Amino Transferase 37 U/L (14-36); Bilirubin,Total 0.7 mg/dL (0.2-1.3); Blood Urea Nitrogen 16 mg/dL (7-17); Calcium 7.9 mg/dL (8.4-10.2); Carbon Dioxide 32 mmol/L (22-30); Chloride 102 mmol/L (98-107); Estimated CRCL calculation 34 ml/min; Estimated Glomerular Filt Rate 36; Glucose 162 mg/dL (65-110); Potassium 3.9 mmol/L (3.4-5.0); Sodium 135 mmol/L (137-145)
[2022-01-25 07:55] LABS: Glucose Point of Care 161 mg/dl (65-105)
[2022-01-25] MEDS: PANTOPRAZOLE SODIUM IV 40 MG VIAL IV PUSH ×2 (08:13→20:44)
[2022-01-25] MEDS: FERROUS SULFATE 324 MG TABLET PO ×2 (08:14→17:21)
[2022-01-25] MEDS: METOPROLOL SUCCINATE EXT REL 25 MG TABCR PO (08:14)
[2022-01-25] MEDS: MULTIVITAMINS THERAPEUTIC TAB (*BKC) 1 TABLET PO (08:14)
[2022-01-25] MEDS: ATORVASTATIN 20 MG TABLET PO (08:14)
[2022-01-25] MEDS: FUROSEMIDE 40 MG TABLET PO (08:14)
[2022-01-25 11:28] LABS: Glucose Point of Care 239 mg/dl (65-105)
--- NOTE | 2022-01-25 11:38 | PM.IMPN ---
Progress Note: A&P Assessment and Plan (1) Acute GI bleeding: Code(s): K92.2 - Gastrointestinal hemorrhage, unspecified Status: Acute Assessment and Plan: Patient here with recurrent GI bleeding history of peptic ulcer disease had EGD done today showing significant gastric varices as well as portal hypertension concerning for need for tips procedure, GI is requesting transfer to tertiary care center where this can be performed. PPI BID. Octreotide gtt. 01/19: Octreotide gtt d/c 01/20: Awaiting bed at [facility], accepted yesterday 01/21: Unchanged, hgb 8 01/22: Unchanged, hgb 7.2, due to slight drop an increase in symptoms, will restart octreotide drip 01/23: Stable at 7.9, back on octreotide gtt 01/24 - S hemoglobin stable at 7.7. Remains on octreotide drip 01/25 - hgb stable, remains on octreotide drip - awaiting [facility] bed (2) Anemia: Qualifiers: Anemia type: unspecified type Qualified Code(s): D64.9 - Anemia, unspecified Code(s): D64.9 - Anemia, unspecified Status: Acute Assessment and Plan: transfuse as needed see above (3) Chronic kidney disease: Code(s): N18.9 - Chronic kidney disease, unspecified Status: Chronic Assessment and Plan: monitor (4) Type 2 diabetes mellitus: Code(s): E11.9 - Type 2 diabetes mellitus without complications Status: Acute Assessment and Plan: monitor blood sugar Plan -[facility] transfer center closed to new patients, only accepting previously established patients, no waiting list even established at this time. -[facility] transfer center has patient on waiting list. Face sheet faxed over, GI fellow and hospitalist both accepted. Subjective Date/time seen: 01/25/22 11:38 no complaints Exam Narrative: General: No acute distress, alert and oriented per baseline HEENT: Atraumatic, normocephalic, mucous membranes moist CV: Regular rate and rhythm, S1, S2 Lungs: Clear to auscultation bilaterally, no rales or crackles noted, no wheezes, good air entry Abdomen: Soft, nontender, nondistended Extremities: Normal to inspection Skin: No rashes noted, no lesions or wounds seen Psych: Euthymic, normal affect Objective Data Vital Signs Vital Signs: Vital Signs - 24 hr 01/24/22 14:00 01/24/22 12:00 01/24/22 16:00 Temperature 97.3 F L Pulse Rate 60 60 59 L Respiratory Rate 16 Blood Pressure 121/61 Pulse Oximetry 100 Oxygen Delivery 01/24/22 20:00 01/24/22 22:00 01/25/22 00:00 Temperature 97.1 F L Pulse Rate 59 L 67 71 Respiratory Rate 16 18 Blood Pressure 139/65 Pulse Oximetry 100 99 Oxygen Delivery Room Air 01/24/22 20:00 01/25/22 06:00 01/25/22 04:00 Temperature 97.3 F L Pulse Rate 56 L 64 59 L Respiratory Rate 16 Blood Pressure 136/67 Pulse Oximetry 96 Oxygen Delivery 01/25/22 08:14 01/25/22 08:00 01/25/22 08:00 Temperature Pulse Rate 72 57 L Respiratory Rate Blood Pressure Pulse Oximetry Oxygen Delivery Room Air Intake/Output Intake/Output: Intake & Output 01/22/22 01/23/22 01/24/22 01/25/22 23:59 23:59 23:59 23:59 Intake Total 1460 1850 2090 360 Balance 1460 1850 2090 360 Meds/Results Medications: Active Medications Generic Name Dose Route Start Last Admin Trade Name Freq PRN Reason Stop Dose Admin Atorvastatin Calcium 20 mg 01/19/22 09:00 01/25/22 08:14 Atorvastatin 20 Mg Tablet PO 20 mg DAILY RADHA Administration Dextrose 12.5 gm 01/18/22 18:24 Dextrose 50% 25 Gm/50 Ml Syringe IV PUSH PRN PRN Hypoglycemia Protocol Ferrous Sulfate 324 mg 01/19/22 17:00 01/25/22 08:14 Ferrous Sulfate 324 Mg Tablet PO 324 mg BIDWM RADHA Administration Furosemide 40 mg 01/19/22 09:00 01/25/22 08:14 Furosemide 40 Mg Tablet PO 40 mg QAM RADHA Administration Glucagon 1 mg 01/18/22 18:24 Glucagon For Inj 1 Mg Vial IM PRN PRN Hypoglycemia Protocol
[2022-01-25] MEDS: INSULIN ASPART (*BKC) 100 UNITS/ML SUB-Q ×2 (11:40→16:59)
[2022-01-25] MEDS: INSULIN GLARGINE (*BKC) 100 UNITS/ML 12 UNITS SUB-Q (20:40)
[2022-01-25 23:44] LABS: Glucose Point of Care 217 mg/dl (65-105)
[2022-01-26] VITALS (11 sets, daily range): BP systolic 120–132; BP diastolic 54–58; PULSE 57–74; RESP 16–17; TEMP 36.1–36.6; O2SAT 96–98
[2022-01-26] MEDS: LEVOTHYROXINE SODIUM 75 MCG TABLET PO (05:52)
[2022-01-26 06:13] LABS: Hematocrit 24.3 % (37.0-47.0); Hemoglobin 7.8 g/dL (12.0-15.0); Mean Corpuscular HGB Conc 32.1 g/dl (32-36); Mean Corpuscular Hemoglobin 30.1 pg (26-34); Mean Corpuscular Volume 93.8 fl (80-100); Mean Platelet Volume 10.1 fl (7.4-10.4); Platelet Count Result 120 k/mm3 (150-375); Red Blood Count 2.59 M/mm3 (4.2-5.4); Red Cell Distribution Width 17.8 % (11.5-14.5); White Blood Count 3.8 K/mm3 (4.5-10.0)
[2022-01-26 06:26] LABS: Alanine Aminotransferase 22 U/L (6-35); Albumin Level 2.8 g/dL (3.5-5.1); Alkaline Phosphatase 81 U/L (38-126); Anion Gap 4 mmol/L (8-16); Aspartate Amino Transferase 33 U/L (14-36); Bilirubin,Total 0.9 mg/dL (0.2-1.3); Blood Urea Nitrogen 15 mg/dL (7-17); Calcium 8.1 mg/dL (8.4-10.2); Carbon Dioxide 30 mmol/L (22-30); Chloride 103 mmol/L (98-107); Estimated CRCL calculation 34 ml/min; Estimated Glomerular Filt Rate 36; Glucose 162 mg/dL (65-110); Potassium 3.9 mmol/L (3.4-5.0); Sodium 137 mmol/L (137-145)
[2022-01-26 07:28] LABS: Glucose Point of Care 164 mg/dl (65-105)
[2022-01-26] MEDS: FUROSEMIDE 40 MG TABLET PO (08:09)
[2022-01-26] MEDS: ATORVASTATIN 20 MG TABLET PO (08:09)
[2022-01-26] MEDS: MULTIVITAMINS THERAPEUTIC TAB (*BKC) 1 TABLET PO (08:09)
[2022-01-26] MEDS: FERROUS SULFATE 324 MG TABLET PO ×2 (08:09→17:18)
[2022-01-26] MEDS: PANTOPRAZOLE SODIUM IV 40 MG VIAL IV PUSH ×2 (08:10→20:11)
[2022-01-26] MEDS: METOPROLOL SUCCINATE EXT REL 25 MG TABCR PO (08:10)
[2022-01-26] MEDS: ACETAMINOPHEN 325 MG TABLET 650 MG PO (08:52)
--- NOTE | 2022-01-26 10:14 | PM.IMPN ---
Progress Note: A&P Assessment and Plan (1) Acute GI bleeding: Code(s): K92.2 - Gastrointestinal hemorrhage, unspecified Status: Acute Assessment and Plan: Patient here with recurrent GI bleeding history of peptic ulcer disease had EGD done today showing significant gastric varices as well as portal hypertension concerning for need for tips procedure, GI is requesting transfer to tertiary care center where this can be performed. PPI BID. Octreotide gtt. 01/19: Octreotide gtt d/c 01/20: Awaiting bed at [facility], accepted yesterday 01/21: Unchanged, hgb 8 01/22: Unchanged, hgb 7.2, due to slight drop an increase in symptoms, will restart octreotide drip 01/23: Stable at 7.9, back on octreotide gtt 01/24 - S hemoglobin stable at 7.7. Remains on octreotide drip 01/25 - hgb stable, remains on octreotide drip - awaiting [facility] bed (2) Anemia: Qualifiers: Anemia type: unspecified type Qualified Code(s): D64.9 - Anemia, unspecified Code(s): D64.9 - Anemia, unspecified Status: Acute Assessment and Plan: transfuse as needed (3) Chronic kidney disease: Code(s): N18.9 - Chronic kidney disease, unspecified Status: Chronic Assessment and Plan: monitor (4) Type 2 diabetes mellitus: Code(s): E11.9 - Type 2 diabetes mellitus without complications Status: Acute Assessment and Plan: monitor blood sugar Plan -[facility] transfer center closed to new patients, only accepting previously established patients, no waiting list even established at this time. -[facility] transfer center has patient on waiting list. Face sheet faxed over, GI fellow and hospitalist both accepted. Subjective Date/time seen: 01/26/22 10:14 Interval history: Patient states she feels fatigued and exhausted today. She is very frustrated that she is still waiting to be transferred. Exam Narrative: General: No acute distress, alert and oriented per baseline HEENT: Atraumatic, normocephalic, mucous membranes moist CV: Regular rate and rhythm, S1, S2 Lungs: Clear to auscultation bilaterally, no rales or crackles noted, no wheezes, good air entry Abdomen: Soft, nontender, nondistended Extremities: Normal to inspection Skin: No rashes noted, no lesions or wounds seen Psych: Euthymic, normal affect Objective Data Vital Signs Vital Signs: Vital Signs - 24 hr 01/25/22 12:00 01/25/22 14:00 01/25/22 16:00 Temperature 97.2 F L Pulse Rate 63 57 L 55 L Respiratory Rate 16 Blood Pressure 131/59 L Pulse Oximetry 96 Oxygen Delivery 01/25/22 19:54 01/25/22 20:00 01/25/22 21:57 Temperature 98.0 F Pulse Rate 55 L 61 60 Respiratory Rate 16 18 Blood Pressure 125/57 L Pulse Oximetry 96 98 Oxygen Delivery Room Air 01/26/22 00:00 01/26/22 04:00 01/26/22 05:28 Temperature 97.8 F Pulse Rate 63 67 68 Respiratory Rate 17 Blood Pressure 120/58 L Pulse Oximetry 97 Oxygen Delivery 01/26/22 08:10 Temperature Pulse Rate 74 Respiratory Rate Blood Pressure Pulse Oximetry Oxygen Delivery Intake/Output Intake/Output: Intake & Output 01/23/22 01/24/22 01/25/22 01/26/22 23:59 23:59 23:59 23:59 Intake Total 1850 2090 1240 590 Balance 1850 2090 1240 590 Meds/Results Medications: Active Medications Generic Name Dose Route Start Last Admin Trade Name Freq PRN Reason Stop Dose Admin Acetaminophen 650 mg 01/26/22 08:23 01/26/22 08:52 Acetaminophen 325 Mg Tablet PO 650 mg Q6H PRN Administration Mild Pain (1-3) or Fever Atorvastatin Calcium 20 mg 01/19/22 09:00 01/26/22 08:09 Atorvastatin 20 Mg Tablet PO 20 mg DAILY RADHA Administration Dextrose 12.5 gm 01/18/22 18:24 Dextrose 50% 25 Gm/50 Ml Syringe IV PUSH PRN PRN Hypoglycemia Protocol Ferrous Sulfate 324 mg 01/19/22 17:00 01/26/22 08:09 Ferrous Sulfate 324 Mg Tablet PO 324 mg BIDWM RADHA Administration Furosemide
[2022-01-26 11:23] LABS: Glucose Point of Care 215 mg/dl (65-105)
[2022-01-26] MEDS: INSULIN ASPART (*BKC) 100 UNITS/ML SUB-Q ×2 (11:49→17:16)
--- NOTE | 2022-01-26 13:08 | PCNWS ---
Weekly nutritional screen. Patient is tolerating current diet with adequate intake. No weight loss reported. No nutritional needs at this time. Pt is eating close to 100% of her meals most days, reports no wt loss, and states she has a good appetite. Agree with diet order.
--- NOTE | 2022-01-26 13:36 | PCNSR ---
On 01/26/22, the student, Chiqui Lorenzo, provided care and completed [facility] documentation on this patient. I have reviewed the student's documentation and agree with the findings.
[2022-01-26 16:10] LABS: Glucose Point of Care 202 mg/dl (65-105)
[2022-01-26 20:07] LABS: Glucose Point of Care 259 mg/dl (65-105)
[2022-01-26] MEDS: INSULIN GLARGINE (*BKC) 100 UNITS/ML 12 UNITS SUB-Q (20:11)
[2022-01-27] VITALS (8 sets, daily range): BP systolic 116–129; BP diastolic 50–60; PULSE 54–75; RESP 16–18; TEMP 35.9–36.6; O2SAT 95–100
[2022-01-27] MEDS: LEVOTHYROXINE SODIUM 75 MCG TABLET PO (05:36)
[2022-01-27 06:22] LABS: Mean Corpuscular Hemoglobin 29.7 pg (26-34); Mean Corpuscular Volume 92.9 fl (80-100); Mean Platelet Volume 9.4 fl (7.4-10.4); Platelet Count Result 118 k/mm3 (150-375); Red Blood Count 2.69 M/mm3 (4.2-5.4); Red Cell Distribution Width 17.6 % (11.5-14.5); White Blood Count 2.7 K/mm3 (4.5-10.0)
[2022-01-27 06:43] LABS: Anion Gap 3 mmol/L (8-16); Blood Urea Nitrogen 12 mg/dL (7-17); Calcium 8.2 mg/dL (8.4-10.2); Carbon Dioxide 30 mmol/L (22-30); Chloride 104 mmol/L (98-107); Estimated CRCL calculation 31 ml/min; Estimated Glomerular Filt Rate 34; Glucose 149 mg/dL (65-110); Potassium 3.7 mmol/L (3.4-5.0); Sodium 137 mmol/L (137-145)
[2022-01-27 07:26] LABS: Glucose Point of Care 149 mg/dl (65-105)
[2022-01-27] MEDS: MULTIVITAMINS THERAPEUTIC TAB (*BKC) 1 TABLET PO (08:21)
[2022-01-27] MEDS: FERROUS SULFATE 324 MG TABLET PO (08:21)
[2022-01-27] MEDS: ATORVASTATIN 20 MG TABLET PO (08:21)
[2022-01-27] MEDS: FUROSEMIDE 40 MG TABLET PO (08:21)
[2022-01-27] MEDS: PANTOPRAZOLE SODIUM IV 40 MG VIAL IV PUSH (08:21)
[2022-01-27] MEDS: METOPROLOL SUCCINATE EXT REL 25 MG TABCR PO (08:21)
[2022-01-27 11:39] LABS: Glucose Point of Care 206 mg/dl (65-105)
[2022-01-27] MEDS: INSULIN ASPART (*BKC) 100 UNITS/ML SUB-Q (11:47)
--- NOTE | 2022-01-27 13:46 | PM.DS ---
DS: Admitting Diagnosis Discharge Date January 27, 2022 Admitting Diagnosis GI bleed DS: Discharge Diagnosis Discharge Diagnosis (1) Acute GI bleeding: Code(s): K92.2 - Gastrointestinal hemorrhage, unspecified Status: Acute Assessment and Plan: Patient here with recurrent GI bleeding history of peptic ulcer disease had EGD done today showing significant gastric varices as well as portal hypertension concerning for need for tips procedure, GI is requesting transfer to tertiary care center where this can be performed. PPI BID. Octreotide gtt. 01/19: Octreotide gtt d/c 01/20: Awaiting bed at [facility], accepted yesterday 01/21: Unchanged, hgb 8 01/22: Unchanged, hgb 7.2, due to slight drop an increase in symptoms, will restart octreotide drip 01/23: Stable at 7.9, back on octreotide gtt 01/24 - S hemoglobin stable at 7.7. Remains on octreotide drip 01/25 - hgb stable - awaiting [facility] bed 01/26 -stable no change 01/27 -stable no change. Hemoglobin continues to rise. Patient feels fine no GI bleeding. Spoke with Dr. Baker at [facility] GI/hepatology fellow. He felt that since there was no change in patient condition she could probably go home with follow-up as an outpatient. This was communicated to the patient and number was given to the patient to call to get an outpatient appointment setup. Phone [phone]. [phone]. (2) Anemia: Qualifiers: Anemia type: unspecified type Qualified Code(s): D64.9 - Anemia, unspecified Code(s): D64.9 - Anemia, unspecified Status: Acute Assessment and Plan: transfuse as needed Secondary to above. (3) Chronic kidney disease: Code(s): N18.9 - Chronic kidney disease, unspecified Status: Chronic Assessment and Plan: monitor (4) Type 2 diabetes mellitus: Code(s): E11.9 - Type 2 diabetes mellitus without complications Status: Acute Assessment and Plan: monitor blood sugar Plan -[facility] transfer center closed to new patients, only accepting previously established patients, no waiting list even established at this time. -[facility] transfer center has patient on waiting list. Face sheet faxed over, GI fellow and hospitalist both accepted. DS: Summary Hospital Course Hospital Course: see dc plans and diagnosis Time Spent with Patient Time attestation: Total time spent providing and/or coordinating discharge services: Exam Narrative: General: No acute distress, alert and oriented per baseline HEENT: Atraumatic, normocephalic, mucous membranes moist CV: Regular rate and rhythm, S1, S2 Lungs: Clear to auscultation bilaterally, no rales or crackles noted, no wheezes, good air entry Abdomen: Soft, nontender, nondistended Extremities: Normal to inspection Skin: No rashes noted, no lesions or wounds seen Psych: Euthymic, normal affect DS: Data Data Completed and Pending Labs on day of discharge: Labs from last 24 hours 01/27/22 01/27/22 01/27/22 11:36 07:23 06:05 WBC RBC Hgb Hct MCV MCH MCHC RDW Plt Count MPV Sodium 137 Potassium 3.7 Chloride 104 Carbon Dioxide 30 Anion Gap 3 L BUN 12 Creatinine 1.50 H Estim Creat Clear Calc 31 Estimated GFR 34 L Glucose 149 H POC Capillary Glucose 206 H 149 H Calcium 8.2 L 01/27/22 01/26/22 01/26/22 06:05 20:03 16:08 WBC 2.7 L RBC 2.69 L Hgb 8.0 L Hct 25.0 L MCV 92.9 MCH 29.7 MCHC 32.0 RDW 17.6 H Plt Count 118 L MPV 9.4 Sodium Potassium Chloride Carbon Dioxide Anion Gap BUN Creatinine Estim Creat Clear Calc Estimated GFR Glucose POC Capillary Glucose 259 H 202 H Calcium Discharge Plan Discharge Attending physician on discharge: Demetri Vieyra Consulting providers: Maged Dugan Discharging Clinician: Demetri Vieyra Patient Disposition: Home, Self-Care Activity: no p
--- NOTE | 2022-01-27 14:32 | PC.NURSE ---
Pt aware to follow up with [facility] GI and hepatology clinic per MD Vieyra, MD Vieyra spoke with MD Montero at [facility] clinic [phone]
== END 2022-01-27 14:30 | disposition home or self-care (01) | DRG 378 ==
LOC: ANHED 16:30 → ANHIMU 17:57 → ANH3MEDSUR 01-21 12:05 → ANHIMU 01-28 10:26
PROVIDERS: Internal Medicine; Internal Medicine Gastroenterology; Nurse Practitioner Adult Health; Student in an Organized Health Care Education/Training Program; Admitting Provider Chiropractor; Emergency Provider Emergency Medicine; PCP Family Medicine; Visit Provider Hospitalist
PROC: 0DJ08ZZ Inspection of Upper Intestinal Tract, Via Natural or Artificial Opening Endoscopic (ICD-10-PCS; CPT 43235; principal; 2022-01-19 14:30)
DX: K29.71 Gastritis, unspecified, with bleeding (principal); D62 Acute posthemorrhagic anemia; N17.9 Acute kidney failure, unspecified; N18.9 Chronic kidney disease, unspecified; Z20.822 Contact with and (suspected) exposure to COVID-19; J45.909 Unspecified asthma, uncomplicated; Z86.718 Personal history of other venous thrombosis and embolism; K75.81 Nonalcoholic steatohepatitis (NASH); D69.6 Thrombocytopenia, unspecified; I12.9 Hypertensive chronic kidney disease with stage 1 through stage 4 chronic kidney disease, or unspecified chronic kidney disease; E11.22 Type 2 diabetes mellitus with diabetic chronic kidney disease; K21.9 Gastro-esophageal reflux disease without esophagitis; E03.9 Hypothyroidism, unspecified; I86.4 Gastric varices; D50.9 Iron deficiency anemia, unspecified; Z87.891 Personal history of nicotine dependence; Z79.899 Other long term (current) drug therapy; Z79.84 Long term (current) use of oral hypoglycemic drugs; Z82.49 Family history of ischemic heart disease and other diseases of the circulatory system; Z98.84 Bariatric surgery status
CPT/HCPCS: 36415; 36430; 74177; 80048; 80053; 82274; 82948; 83036; 83690; 83735; 85014; 85018; 85025; 85027; 85055; 85610; 85730; 86850; 86900; 86901; 86922; 96361; 96374; 96375; 96376; 99285; A9270; C9113; C9803; G0378; J0696; J1815; J2354; J2405; J3010; J7030; J7050; J7060; J7120; P9016; Q9967; U0003; U0005

== ENCOUNTER 2023-01-28 07:29 | Emergency (ER) | payer MEDICARE, SELFPAY ==
[2023-01-28] VITALS (11 sets, daily range): BP systolic 122–159; BP diastolic 48–70; PULSE 78–84; RESP 15–23; TEMP 36.7–36.8; O2SAT 95–99
[2023-01-28] MEDS: ONDANSETRON INJ 4 MG/2 ML VIAL IV PUSH (07:50)
[2023-01-28 09:00] LABS: Basophils Percent Auto 0.6 % (0.2-1.2); Eosinophils Absolute Auto 0.2 K/mm3 (0-0.3); Eosinophils Percent Auto 3.4 % (0-4.4); Hematocrit 32.4 % (37.0-47.0); Hemoglobin 10.6 g/dL (12.0-15.0); Immature Granulocyte Absolute 0.02 K/mm3 (0.00-0.031); Immature Granulocyte Percent A 0.4 % (0-0.5); Lymphocytes Percent Auto 16.8 % (18.3-44.2); Mean Corpuscular HGB Conc 32.7 g/dl (32-36); Mean Corpuscular Hemoglobin 31.9 pg (26-34); Mean Corpuscular Volume 97.6 fl (80-100); Mean Platelet Volume 9.4 fl (7.4-10.4); Monocytes Absolute Auto 0.3 K/mm3 (0.1-0.6); Monocytes Percent Auto 5.8 % (2.6-8.5); Neutrophils Absolute Auto 3.9 K/mm3 (1.3-6.7); Platelet Count Result 115 k/mm3 (150-375); Red Blood Count 3.32 M/mm3 (4.2-5.4); Red Cell Distribution Width 16.3 % (11.5-14.5); White Blood Count 5.4 K/mm3 (4.5-10.0)
[2023-01-28 09:07] LABS: Alanine Aminotransferase 40 U/L (6-35); Albumin Level 3.3 g/dL (3.5-5.1); Alkaline Phosphatase 265 U/L (38-126); Anion Gap 2 mmol/L (8-16); Aspartate Amino Transferase 64 U/L (14-36); Bilirubin,Total 1.2 mg/dL (0.2-1.3); Blood Urea Nitrogen 32 mg/dL (7-17); Calcium 8.9 mg/dL (8.4-10.2); Carbon Dioxide 29 mmol/L (22-30); Chloride 106 mmol/L (98-107); Estimated CRCL calculation 26 ml/min; Estimated Glomerular Filt Rate 27; Glucose 143 mg/dL (65-110); INR 1.2; Potassium 4.7 mmol/L (3.4-5.0); Prothrombin Time 15.4 Seconds (11.1-14.7); Sodium 137 mmol/L (137-145)
[2023-01-28 09:08] LABS: Partial Thromboplastin Time 29.6 SECONDS (22.3-36.8)
[2023-01-28] MEDS: SODIUM CHLORIDE 0.9% IV 1,000 ML 999 ML IV CONT (09:23)
[2023-01-28 11:16] LABS: Appearance Urine Clear (Clear); Bilirubin Urine Negative (Negative); Blood Urine Negative (Negative); Color Urine Yellow (Yellow); Glucose Urine UA Negative (Negative); Ketones Urine Negative (Negative); Leukocyte Esterase Ur Negative LEU/UL (Negative); Nitrate Urine Negative (Negative); Protein Urine Negative (Negative); Specific Grav Ur 1.015 (1.001-1.035); Urobilinogen Urine 0.2 mg/dL (<2.0)
[2023-01-28 11:18] LABS: Add Urine Microscopic? NO
--- NOTE | 2023-01-28 12:09 | ED.GENADULT ---
HPI - General Adult General Chief complaint: Weakness Stated complaint: weakness Time Seen by Provider: 01/28/23 07:40 History of Present Illness HPI narrative: Patient is a 77-year-old female who presents ER with increased fatigue. Ongoing over the last 2 days. Feel like she is exhausted and does not want to move around. No chest pain or chest pressure. No fevers or chills or sweats. Has history of anemia. Denies any acute blood loss. No dark black stools. Reports compliance with iron. Patient has chronic liver disease and has had a TIPS revision in the last 3 months. Related Data Home Medications Medication Instructions Recorded Confirmed allopurinol 100 mg tablet 100 mg PO DAILY 12/03/19 01/18/22 cholecalciferol (vitamin D3) 1,250 1,250 mcg PO DAILY 12/03/19 01/18/22 mcg (50,000 unit) capsule ferrous sulfate 325 mg (65 mg 325 mg PO BID 12/03/19 01/18/22 iron) tablet (FeroSul) furosemide 40 mg tablet 40 mg PO QAM 12/03/19 01/18/22 glipizide 5 mg tablet 5 mg PO DAILY 12/03/19 01/18/22 glucosamine HCl 750 mg tablet 750 mg PO BID 12/03/19 01/18/22 levothyroxine 75 mcg capsule 75 mcg PO DAILY 12/03/19 01/18/22 metformin 500 mg tablet 500 mg PO DAILY 12/03/19 01/18/22 metoprolol succinate 25 mg 25 mg PO DAILY 12/03/19 01/18/22 tablet,extended release 24 hr multivitamin (Daily Multi-Vitamin 1 tablet PO DAILY 12/03/19 01/18/22 tablet) atorvastatin 20 mg tablet 20 mg PO DAILY 01/04/22 01/18/22 Allergies Allergy/AdvReac Type Severity Reaction Status Date / Time lisinopril Allergy Severe throat and Verified 01/28/23 07:45 tongue swelling Review of Systems Review of Systems: All systems reviewed & are unremarkable except as noted in HPI and below Constitutional: Constitutional: Denies chills, Reports fatigue, Denies fever(s) and Reports weakness ENT: Denies nasal congestion and Denies sore throat Cardiovascular: Cardiovascular: Denies chest pain and Denies rapid heart rate Respiratory: Respiratory: Denies cough and Denies dyspnea Gastrointestinal: Gastrointestinal: Denies abdominal pain, Denies nausea and Denies vomiting PMFSH Past Medical History Medical History (Updated 01/28/23 @ 12:[address] MD) Anemia Asthma Chronic kidney disease Deep venous thrombosis Gastric ulcer Gastric varix Gastroesophageal mucosal tear GI bleed x3 in February 2019, May 2019, November 2019. 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 Code status: Full code. Smoking packs per day: 0.25 Smoking cigarettes per day: 5.0 Years smoked: 30 Smoking pack-years: 7.50 Smoking status: Former smoker Alcohol intake: current Drinks per week: 1 Alcohol use details: 1 glass wine weekly Substance use: never Substance use type: does not use Living arrangements: alone Additional living arrangements comments: Lives in her own home in [place]. . Occupation/Education: retired Spiritual care concerns: No Exam Narrative: GENERAL: Well-appearing, well-nourished, and in no acute distress. HEAD: Normocephalic, atraumatic. EYES: PERRL and EOMI. ENT: Mucous membranes moist. CHEST: Clear to auscultation. No respiratory distress. HEART: Regular rate and rhythm. Rosina
== END 2023-01-28 12:13 | disposition home or self-care (01) ==
PROVIDERS: Emergency Provider Emergency Medicine; PCP Family Medicine
DX: R53.83 Other fatigue (principal); J45.909 Unspecified asthma, uncomplicated; E03.9 Hypothyroidism, unspecified; I12.9 Hypertensive chronic kidney disease with stage 1 through stage 4 chronic kidney disease, or unspecified chronic kidney disease; E11.22 Type 2 diabetes mellitus with diabetic chronic kidney disease; N18.9 Chronic kidney disease, unspecified; Z79.84 Long term (current) use of oral hypoglycemic drugs; Z87.891 Personal history of nicotine dependence
CPT/HCPCS: 36415; 80053; 81003; 85025; 85055; 85610; 85730; 86850; 86900; 86901; 96361; 96374; 99284; J2405; J7030